=== PATIENT | female | born 1955 | race Caucasian/White ===

== ENCOUNTER → 2018-01-14 | Outpatient (CLI) | payer OTHER ==
--- NOTE | 2018-01-15 08:36 | MM ---
Reason for exam: screening (asymptomatic). Last mammogram was performed 1 year and 4 months ago. History: Patient is postmenopausal. Took estrogen for 6 months beginning at age 50. Physical Findings: A clinical breast exam by your physician is recommended on an annual basis and results should be correlated with mammographic findings. MG 3D Screening Mammo W/Cad Bilateral CC and MLO view(s) were taken. Prior study comparison: September 12, 2016, bilateral MG screening mammo w CAD. February 23, 2015, bilateral MG screening mammo w CAD. The breast tissue is heterogeneously dense. This may lower the sensitivity of mammography. There is no discrete abnormality. No significant changes when compared with prior studies. ASSESSMENT: Negative, BI-RAD 1 RECOMMENDATION: Routine screening mammogram of both breasts in 1 year.
== END | disposition home or self-care (01) ==
LOC: RADMAMWWP 09:35
PROVIDERS: ATTEND Obstetrics & Gynecology
DX: Z12.31 Encounter for screening mammogram for malignant neoplasm of breast (principal)
CPT/HCPCS: 77063; 77067

== ENCOUNTER 2018-11-18 06:54 | Day surgery (SDC) | payer MEDICARE, OTHER ==
[2018-11-14 11:20] VITALS: BMI 23.6
[~2018-11-18 06:54] MED LIST: LACTATED RINGERS 1,000 ML IV SCH; LIDOCAINE 1% 20 ML VIAL (10MG/ML) FOR IV START INTRADERMA PRN
[2018-11-18 07:16] VITALS: RESP 16; TEMP 97.7
[2018-11-18] MEDS ORDERED: LIDOCAINE 1% INJ 10MG/ML (20 ML MDV) ONE (08:45)
[2018-11-18] MEDS ORDERED: PROPOFOL 10 MG/ML 20 ML VIAL IV ONE (08:45)
--- NOTE | 2018-11-18 09:18 | P.PCN ---
Date of Procedure: 11/18/18 Procedure(s) Performed: Procedure: Total colonoscopy. Preoperative diagnosis: Screening for neoplasia. Postoperative diagnosis: Exam within normal limits. Preparation: HalfLytely prep. Sedation: Was provided by anesthesia. Brief clinical history: The patient a 63-year-old female who is scheduled for this evaluation for screening for neoplasia age being her risk factor. She had two prior exams, the last was around 10 years ago. The patient has no abdominal complaints, bleeding or anemia. No family history of colon cancer. Her brother had polyps. Procedure: With the patient on her left lateral decubitus position and after informed consent and adequate sedation, the perianal area was inspected and it did not show any fissures or fistulas. There were no masses felt on digital rectal examination. The Olympus CFH 190L video colonoscope was then inserted in the rectum in the usual fashion and advanced to the cecum. The mucosa appeared healthy. No polyps or tumors were seen or any obvious diverticular disease or other pathology. I retroflexed the endoscope in the rectum before the endoscope was withdrawn. The patient tolerated the procedure well. Plan: The patient was reassured. She will follow-up with you as planned and I recommended repeat exam in 10 years.
[2018-11-18 09:24] VITALS: BP 111/74; PULSE 86
== END 2018-11-18 09:43 | disposition home or self-care (01) ==
LOC: ORWHC2ENDO 06:54
DX: Z12.11 Encounter for screening for malignant neoplasm of colon (principal); J45.909 Unspecified asthma, uncomplicated; F39 Unspecified mood [affective] disorder; M81.0 Age-related osteoporosis without current pathological fracture; Z79.899 Other long term (current) drug therapy; Z88.5 Allergy status to narcotic agent; Z83.71 Family history of colonic polyps
CPT/HCPCS: J2001; J2704; G0121

== ENCOUNTER → 2021-01-27 | Outpatient (CLI) | payer MEDICARE ==
--- NOTE | 2021-01-30 11:05 | MM ---
Reason for exam: screening (asymptomatic). Last mammogram was performed 3 years ago. History: Patient is postmenopausal. Took estrogen for 6 months beginning at age 50. Physical Findings: A clinical breast exam by your physician is recommended on an annual basis and results should be correlated with mammographic findings. MG 3D Screening Mammo W/Cad Bilateral CC and MLO view(s) were taken. Prior study comparison: January 14, 2018, bilateral MG 3d screening mammo w/cad. September 12, 2016, bilateral MG screening mammo w CAD. The breast tissue is heterogeneously dense. This may lower the sensitivity of mammography. There are benign appearing vascular calcifications bilaterally. There is no discrete abnormality. ASSESSMENT: Negative, BI-RAD 1 RECOMMENDATION: Routine screening mammogram of both breasts in 1 year.
== END | disposition home or self-care (01) ==
LOC: RADMAMWWP 10:19
PROVIDERS: ATTEND Obstetrics & Gynecology
DX: Z12.31 Encounter for screening mammogram for malignant neoplasm of breast (principal); Z78.0 Asymptomatic menopausal state
CPT/HCPCS: 77063; 77067

== ENCOUNTER → 2022-07-04 | Outpatient (CLI) | payer MEDICARE ==
[2022-07-04 16:49] LABS: T4, Free (Free Thyroxine) 1.07 ng/dL (0.800-1.800)
== END | disposition home or self-care (01) ==
LOC: LABWHC1 09:17
PROVIDERS: ATTEND Psychiatry & Neurology Neurology
DX: R41.3 Other amnesia (principal)
CPT/HCPCS: 36415; 82607; 84439; 84443; 84480; 86780

== ENCOUNTER → 2022-10-10 | Outpatient (CLI) | payer MEDICARE ==
--- NOTE | 2022-10-11 18:52 | MM ---
Reason for Exam: Screening (asymptomatic). Last mammogram was performed 1 year(s) and 8 month(s) ago. Patient History: Menarche at age 12. First Full-Term at age 27. Postmenopausal. Estrogen for 6 months starting at age 50. Risk Values: Radha 5 year model risk: 1.7%. NCI Lifetime model risk: 5.4%. Prior Study Comparison: 09/12/2016 Bilateral Screening Mammogram, [facility]. 01/14/2018 Bilateral Screening Mammogram, [facility]. 01/27/2021 Bilateral Screening Mammogram, [facility]. Tissue Density: The breast tissue is heterogeneously dense. This may lower the sensitivity of mammography. Findings: Analyzed By CAD. Areas of asymmetric density remain unchanged. There is no suspicious group of microcalcifications or new suspicious mass in either breast. Overall Assessment: Benign, BI-RAD 2 Management: Screening Mammogram of both breasts in 1 year. 1. Patient should continue monthly self breast exams. 2. A clinical breast exam by your physician is recommended on an annual basis. 3. This exam should not preclude additional follow-up of suspicious palpable abnormalities. Electronically signed and approved by: Uzma Lake M.D. Radiologist
--- NOTE | 2022-10-12 10:33 | BD ---
EXAMINATION TYPE: Axial Bone Density DATE OF EXAM: 10/10/2022 COMPARISON: 04/10/2007 CLINICAL HISTORY: 67 years year old Female. ICD-10 CODE: M810 OSTEOPOROSIS Height: 5 FT 1 IN Weight: 122 FRAX RISK QUESTIONS: Alcohol (3 or more units per day): NO Family History (Parent hip fracture): NO Glucocorticoids (More than 3mos): NO (Ex: prednisone, prednisolone, methylprednisolone, dexamethasone, and hydrocortisone). History of Fracture in Adulthood: NO Secondary Osteoporosis: 1. Type 1 Diabetes: NO 2. Hyperthyroidism: NO 3. Menopause before 45: YES 4. Malnutrition: NO 5. Chronic liver disease: NO Rheumatoid Arthritis: NO Current Tobacco Use: NO RISK FACTORS HISTORY OF: Surgery to Spine/Hip(right/left)/Wrist (right/left): NO Family History of Osteoporosis: NO Active: YES Diet low in dairy products/other sources of calcium: NO Postmenopausal woman: YES Take estrogen and/or progesterone medications: NO Lost more than 2 inches in height since high school: YES Frequent falls: YES Poor Health: GOOD Hyperparathyroidism: NO Adrenal Insufficiency: NO MEDICATIONS: Osteoporosis Medications: YES Which medication: RALOXIFENE How Long: FIVE YEARS Additional Medications: TRAZODONE, CLONOPIN, RESTASIS, FLUOXITINE, RALOXIFENE ,ANTIDEPRESSANT, Additional History: EXAM MEASUREMENTS: Bone mineral densitometry was performed using the goAct System. Bone mineral density as measured about the Lumbar spine is: ----- L1-L4(G/cm2): 0.841 T Score Values are as follows: ----- L1: -1.6 ----- L2: -2.9 ----- L3: -4.0 ----- L4: -2.9 ----- L1-L4: -2.8 Bone mineral density has: DECREASED -24.5 % since study of: 2006 Bone mineral density about the R hip (g/cm2): 0.690 Bone mineral density about the L hip (g/cm2): 0.616 T Score values are as follows: -----R Neck: -2.5 -----L Neck: -3.0 -----R Total: -1.9 -----L Total: -2.1 Bone mineral density has: DECREASED -12.3 % since study of: 2006 FRAX%s: The graph provided illustrates a 18.2 % chance for a major osteoporotic fx and a 6.1 % chance for the hips probability for fx in 10 years time. IMPRESSION: Osteoporosis (T Score less than -2.5). There is increased fracture risk and therapy is usually indicated based on age. Re-Screen 1-2 years. NOTE: T-SCORE=SD OF THE YOUNG ADULT MEAN.
== END | disposition home or self-care (01) ==
LOC: RADMAMWWP 13:52
PROVIDERS: ATTEND Internal Medicine
DX: Z12.31 Encounter for screening mammogram for malignant neoplasm of breast (principal); M81.0 Age-related osteoporosis without current pathological fracture; Z78.0 Asymptomatic menopausal state; M85.89 Other specified disorders of bone density and structure, multiple sites
CPT/HCPCS: 77063; 77067; 77080

== ENCOUNTER → 2022-11-15 | Outpatient (CLI) | payer MEDICARE ==
--- NOTE | 2022-11-15 11:59 | US ---
EXAMINATION TYPE: US liver DATE OF EXAM: 11/15/2022 COMPARISON: NONE CLINICAL HISTORY: R74.01 ELEVATION LIVER TRANSAMINASE LEVELS. Abnormal labs. No pain. TECHNIQUE: Multiple sonographic images of the right upper quadrant are obtained. FINDINGS: EXAM MEASUREMENTS: Liver Length: 15.2 cm Gallbladder Wall: 0.1 cm CBD: 0.6 cm Right Kidney: 9.5 x 5.6 x 3.8 cm Pancreas: Echogenic in appearance. Liver: wnl Gallbladder: wnl Evidence for sonographic Hernandez's sign: neg CBD: wnl Right Kidney: No hydronephrosis or masses seen IMPRESSION: Unremarkable ultrasound of the liver, gallbladder, pancreas, and kidneys
== END | disposition home or self-care (01) ==
LOC: RADUSWWP 08:50
PROVIDERS: ATTEND Internal Medicine
DX: R74.01 Elevation of levels of liver transaminase levels (principal)
CPT/HCPCS: 76705

== ENCOUNTER 2023-11-25 06:32 | Emergency (ER) | payer MEDICARE ==
[2023-11-25] MEDS: ACETAMINOPHEN TAB 325 MG TAB PO STA (06:41)
[2023-11-25] MEDS: IBUPROFEN 600 MG TAB PO STA (06:41)
[2023-11-25] MEDS: LIDOCAINE 4% PATCH TOPICAL ONE (06:43)
--- NOTE | 2023-11-25 06:46 | ED ---
Back Pain HPI - General Chief Complaint: Back Pain/Injury Stated Complaint: Fall Time Seen by Provider: 11/25/23 06:35 Source: patient, family, EMS, RN notes reviewed Mode of arrival: EMS Limitations: no limitations - History of Present Illness Initial Comments: This is a 68-year-old female who presents to the emergency department for a fall. Patient has Alzheimer's as well as another neurological problem causing frequent falls. Her is her multimedia developer caregiver, and he tries to catch her when she falls. However 2 days ago he was at work, and she went to let the dogs out, but lost her balance and fell into their stone fireplace, landing on her right side. She has since been complaining of pain to the right lower back and right hip. She did not hit her head and she is not taking any blood thinners. She is still able to ambulate, and EMS noted her to be ambulating quite well. She is treating her symptoms with ibuprofen, which is not eff ective. She has a cane, but does not like to use it. MD Complaint: back pain, back injury, fall Onset/Timin -: days(s) - Related Data Home Medications Medication Instructions Recorded Confirmed Albuterol Sulfate [Proair Hfa] 1 - 2 puff INHALATION Q6HR PRN 11/14/18 11/18/18 FLUoxetine HCL 40 mg PO QAM 11/14/18 11/14/18 Raloxifene [Evista] 60 mg PO QAM 11/14/18 11/18/18 buPROPion HCL [Wellbutrin XL] 300 mg PO QAM 11/14/18 11/14/18 clonazePAM 0.5 mg PO BID 11/14/18 11/14/18 cycloSPORINE [Restasis] 1 applicator BOTH EYES BID PRN 11/14/18 11/14/18 traZODone HCL [Desyrel] 100 mg PO HS 11/14/18 11/14/18 Previous Rx's Medication Instructions Recorded Acetaminophen [Tylenol Extra 1,000 mg PO Q6H PRN #60 tablet 11/25/23 Strength] Ibuprofen [Motrin] 800 mg PO Q8H PRN #30 tab 11/25/23 Lidocaine 5% Patch [Lidoderm 5% 1 patch TOPICAL DAILY PRN #30 patch 11/25/23 Patch] methocarbamoL [Robaxin-750] 750 mg PO QID PRN #30 tab 11/25/23 Allergies Allergy/AdvReac Type Severity Reaction Status Date / Time codeine AdvReac Nausea & Verified 11/25/23 06:40 Vomiting Review of Systems ROS Statement: Those systems with pertinent positive or pertinent negative responses have been documented in the HPI. ROS Other: All systems not noted in ROS Statement are negative. Past Medical History Past Medical History: Asthma Additional Past Medical History / Comment(s): HX OSTEOPOROSIS History of Any Multi-Drug Resistant Organisms: None Reported Past Surgical History: Section, Orthopedic Surgery Additional Past Surgical History / Comment(s): MICHELINE KNEES MENISCUS REPAIR, SINUS SX Past Anesthesia/Blood Transfusion Reactions: No Reported Reaction Past Psychological History: Anxiety, Depression Smoking Status: Never smoker Past Alcohol Use History: Rare Past Drug Use History: None Reported - Past Family History Father Family Medical History: Cancer Additional Family Medical History / Comment(s): THROAT, SKIN General Exam Limitations: no limitations General appearance: alert, in no apparent distress Head exam: Present: atraumatic, normocephalic, normal inspection Respiratory exam: Present: normal lung sounds bilaterally. Absent: respiratory distress, wheezes, rales, rhonchi, stridor Cardiovascular Exam: Present: regular rate, normal rhythm, normal heart sounds. Absent: systolic murmur, diastolic murmur, rubs, gallop, clicks Extremities exam: Present: other (Tenderness over the right lateral hip. Full ROM. No deformities. No shortening or rotation of the lower extremity. 2+ DP and PT pulses.) Back exam: Present: other (Right lower back, no vertebral tenderness) Neurological exam: Present: alert, oriented X3, CN II-XII intact Psychiatric exam: Present: normal affect, normal mood Skin exam: Present: warm, dry, intact, normal color. Absent: rash Course Vital Signs 11/25/23 11/25/23 06:33 09:47 Temperature 97.7 F Pulse Rate 95 84 Respiratory 17 14 Rate Blood Pressure 146/96 137/74 O2 Sat by Pulse 98 97 Oximetry Medical Decision Making - Medical Decision Making This is a 68-year-old female who presents to the emergency department for back pain and hip pain after a fall. Was pt. sent in by a medical professional or institution? @ -No Did you speak to anyone other than the patient for history? @ -EMS provided the majority of the information. Did you review nursing and triage notes? @ -Yes, and I agree, it is accurate with regards to the patient's symptoms. Were old charts reviewed? @ -No Differential Diagnosis? @ -Differential Back Pain: Strain, zoster, cauda equina syndrome, epidural abscess, vertebral osteomyelitis, discitis, fracture, subluxation, disc herniation, DJD, spinal stenosis, dissection, AAA, pancreatitis, peptic ulcer disease, pyelonephritis, kidney stone, this is not meant to be an all-inclusive list. EKG interpreted by me (3pts min.)? @ -Not obtained X-rays interpreted by me (1pt min.)? @ -X-ray of the lumbar spine, sacrum/coccyx, and right hip obtained. My inte rpretation identifies no acute fractures and a suspected age indeterminate T12 compression deformity. CT interpreted by me (1pt min.)? @ -Not obtained U/S interpreted by me (1pt. min.)? @ -Not obtained What testing was considered but not performed? (CT, X-rays, U/S, labs)? Why? @ -None What meds were considered but not given? Why? @ -None Did you discuss the management of the patient with other professionals? @ -No Did you reconcile home meds? @ -No Was smoking cessation discussed for >3mins.? @ -No Was critical care preformed (if so, how long)? @ -No Were there social determinants of health that impacted care today? How? (Homelessness, low income, unemployed, alcoholism, drug addiction, transportation, low edu. Level, literacy, decrease access to med. care, [facility], rehab)? @ -No Was there de-escalation of care discussed even if they declined? (Discuss DNR or withdrawal of care, Hospice)? @ -No What co-morbidities impacted this encounter? (DM, HTN, Smoking, COPD, CAD, Cancer, CVA, Hep., AIDS, mental health diagnosis, sleep apnea, morbid obesity)? @ -Alzheimer's, balance disorder, osteoporosis Was patient admitted / discharged? @ -Discharged. X-ray of the lumbar spine, sacrum/coccyx, and right hip obtained. This demonstrates a T12 age indeterminate compression fracture. Patient has no point tenderness over this area, and due to the frequent falls the patient is experiencing, there are multiple instances when this may have occurred. No other injuries were noted on the imaging. Discussed with the patient and her having the patient use a walker for support. Patient is in agreement with this and her states that he is able to get her a walker today. She was initially treated with Ibuprofen, Tylenol, and a lidocaine patch, with some improvement in symptoms. Her inquired about adequate pain control at home as well as medication dosing, and advised that she had done well with Tramadol in the past. He also inquired about a muscle relaxant. I was in agreement with trying these and she was subsequently given a dose of Tramadol and Robaxin in the emergency department with improvement in symptoms. Her requested a prescription for Ibuprofen and Tylenol to help with dosing. Rx for Ibuprofen, Tylenol, Robaxin, and lidocaine patches provided with dosing instructions reviewed. Patient discharged home in stable condition and will follow up with her PCP. Undiagnosed new problem with uncertain prognosis? @ -None Drug Therapy requiring intensive monitoring for toxicity (Heparin, Nitro, Insulin, Cardizem)? @ -None Were any procedures done? @ -None Diagnosis/symptom? @ -Fall, back pain Acute, or Chronic, or Acute on Chronic? @ -Acute Uncomplicated (without systemic symptoms) or Complicated (systemic symptoms)? @ -Uncomplicated Side effects of treatment? @ -None Exacerbation, Progression, or Severe Exacerbation] @ -Not applicable Poses a threat to life or bodily function? @ -No Return precautions reviewed in depth, the patient is instructed to return to the emergency department with any new, worsening, or concerning symptoms. Patient verbalized understanding. This case was discussed in detail with the attending ED physician, Dr. Damon Presentation, findings, and treatment plan discussed in detail as well. - Radiology Data Radiology results: report reviewed, image reviewed Disposition Clinical Impression: Fall, Back pain Disposition: HOME SELF-CARE Condition: Stable Instructions (If sedation given, give patient instructions): Fall Prevention for Older Adults (ED), Back Pain (ED) Additional Instructions: Return to the emergency department with any new, worsening, or concerning symptoms. She can have Ibuprofen 800mg every 8 hours (3 times daily) and Tylenol 1g (1000mg or 2 extra strength) every 6 hours (4 times daily). She can take the Robaxin 3-4 times daily, be aware that this may make her drowsy. The lidocaine patches can be applied daily. Follow up with her primary care provider in 1-2 days. Prescriptions: Lidocaine 5% Patch [Lidoderm 5% Patch] 1 patch TOPICAL DAILY PRN #30 patch PRN Reason: Pain Ibuprofen [Motrin] 800 mg PO Q8H PRN #30 tab PRN Reason: Pain methocarbamoL [Robaxin-750] 750 mg PO QID PRN #30 tab PRN Reason: Pain Acetaminophen [Tylenol Extra Strength] 1,000 mg PO Q6H PRN #60 tablet PRN Reason: Pain Is patient prescribed a controlled substance at d/c from ED?: No Referrals: Issac Pederson DO [Primary Care Provider] - 1-2 days Time of Disposition: 09:40
[2023-11-25 06:52] VITALS: TEMP 97.7
--- NOTE | 2023-11-25 07:51 | XR ---
EXAMINATION TYPE: XR Hip Complete RT DATE OF EXAM: 11/25/2023 7:37 AM CLINICAL INDICATION:Female, 68 years old with history of Pain after fall; [facility] COMPARISON: None. TECHNIQUE: XR Hip Complete RT; hip was examined in the frontal and lateral projections and a AP pelvi s. FINDINGS: No evidence for acute process, joint dislocation or significant soft tissue swelling. Osteo phyte formation of the superior acetabulum of the hip. IMPRESSION: 1. No evidence for acute process. 2. Mild hip osteoarthrosis.
--- NOTE | 2023-11-25 07:55 | XR ---
EXAMINATION TYPE: XR sacrum coccyx, XR lumbar spine 2 or 3V DATE OF EXAM: 11/25/2023 7:37 AM CLINICAL INDICATION:Female, 68 years old with history of Pain after fall; e COMPARISON: None TECHNIQUE: The sacrum and coccyx was examined in frontal and lateral projections. Additional frontal and lateral views of the lumbar spine were obtained. FINDINGS: There is no soft tissue abnormality. No abnormal calcifications are present. Multilevel de generative changes of the lower spine with osteophyte formation and disc space narrowing with facet j oint arthropathy.. Mild scoliosis changes apex L2 on the left. Ration deformity of T12 which is age i ndeterminate. There is at least 50% height loss anteriorly. Sacrum and coccyx appear intact. IMPRESSION: 1. Age-indeterminate T12 compression deformity, consider MRI for evaluation for bony edema in the se tting of a acute/subacute fracture. 2. Coccyx and sacrum appear intact.
[2023-11-25] MEDS: traMADol 50 MG STARTER PACK 3 TAB BTL PO STA (08:57)
[2023-11-25] MEDS: traMADol 50 MG TAB PO STA (08:58)
[2023-11-25] MEDS: methocarbamoL 750 MG TAB PO STA (09:04)
[2023-11-25] MEDS: methocarbamoL 500 MG TAB PO STA (09:23)
[2023-11-25 10:16] VITALS: BP 137/74; PULSE 84; RESP 14
== END 2023-11-25 09:48 | disposition home or self-care (01) ==
LOC: EC 06:32
DX: M54.50 Low back pain, unspecified (principal); J45.909 Unspecified asthma, uncomplicated; F41.9 Anxiety disorder, unspecified; F32.A Depression, unspecified; Z79.899 Other long term (current) drug therapy; W19.XXXA Unspecified fall, initial encounter; Z88.5 Allergy status to narcotic agent
CPT/HCPCS: 72100; 72220; 73502; 99284

== ENCOUNTER 2023-11-28 14:30 | Observation (INO) | payer MEDICARE ==
--- NOTE | 2023-11-28 14:52 | ED ---
Weakness HPI - General Chief complaint: Syncope Stated complaint: Syncope Time Seen by Provider: 11/28/23 14:45 Source: EMS, RN notes reviewed, old records reviewed Mode of arrival: EMS Limitations: no limitations - History of Present Illness Initial comments: This is a 68-year-old female to the ER for evaluation today. Patient presents today for evaluation of a syncopal event. Possibly from significant low back pain patient was in the ER a few days ago for severe back pain patient was amatory which began to have severe back pain and passed out in her 's arms as he was trying to help her to the bathroom. Back pain has been debilitating patient is without other complaint MD Complaint: generalized weakness, focal weakness, lack of energy, difficulty walking -: days(s) Location: generalized Severity: severe Severity scale (1-10): 9 Quality: aching, sharp Consistency: constant Improves with: none Worsens with: none Context: recent illness, history of similar Associated Symptoms: denies other symptoms - Related Data Home Medications Medication Instructions Recorded Confirmed Albuterol Sulfate [Proair Hfa] 1 - 2 puff INHALATION Q6HR PRN 11/14/18 11/28/23 FLUoxetine HCL 80 mg PO DAILY 11/14/18 11/28/23 Raloxifene [Evista] 60 mg PO DIRECTED 11/14/18 11/28/23 buPROPion HCL [Wellbutrin XL] 300 mg PO DAILY 11/14/18 11/28/23 clonazePAM 0.5 mg PO BID 11/14/18 11/28/23 traZODone HCL [Desyrel] 100 mg PO HS 11/14/18 11/28/23 "Goodsense" Allergy Tablet (24hr 1 dose PO DAILY 11/28/23 11/28/23 Tab) Alendronate Sodium 70 mg PO TU 11/28/23 11/28/23 Calcium/D3/Zinc/Copper/Darin 1 tab PO DAILY 11/28/23 11/28/23 [Citracal-D3 Maximum Plus Caplt] Multivit-Min/Iron/Folic/Lutein 1 tab PO DAILY 11/28/23 11/28/23 [Centrum Silver Women Tablet] polyethylene glycoL 3350 [Miralax] 17 gm PO DAILY 11/28/23 11/28/23 Previous Rx's Medication Instructions Recorded Acetaminophen [Tylenol Extra 1,000 mg PO Q6H PRN #60 tablet 11/25/23 Strength] Ibuprofen [Motrin] 800 mg PO Q8H PRN #30 tab 11/25/23 Lidocaine 5% Patch [Lidoderm 5% 1 patch TOPICAL DAILY PRN #30 patch 11/25/23 Patch] Allergies Allergy/AdvReac Type Severity Reaction Status Date / Time codeine AdvReac Nausea & Verified 11/28/23 19:21 Vomiting Review of Systems ROS Statement: Those systems with pertinent positive or pertinent negative responses have been documented in the HPI. ROS Other: All systems not noted in ROS Statement are negative. Past Medical History Past Medical History: Asthma Additional Past Medical History / Comment(s): HX OSTEOPOROSIS History of Any Multi-Drug Resistant Organisms: None Reported Past Surgical History: Section, Orthopedic Surgery Additional Past Surgical History / Comment(s): MICHELINE KNEES MENISCUS REPAIR, SINUS SX Past Anesthesia/Blood Transfusion Reactions: No Reported Reaction Past Psychological History: Anxiety, Depression Smoking Status: Never smoker Past Alcohol Use History: Rare Past Drug Use History: None Reported - Past Family History Father Family Medical History: Cancer Additional Family Medical History / Comment(s): THROAT, SKIN General Exam Limitations: no limitations General appearance: alert, in no apparent distress Head exam: Present: atraumatic, normocephalic, normal inspection Eye exam: Present: normal appearance, PERRL, EOMI. Absent: scleral icterus, conjunctival injection, periorbital swelling ENT exam: Present: normal exam, mucous membranes moist Neck exam: Present: normal inspection. Absent: tenderness, meningismus, lymphadenopathy Respiratory exam: Present: normal lung sounds bilaterally. Absent: respiratory distress, wheezes, rales, rhonchi, stridor Cardiovascular Exam: Present: regular rate, normal rhythm, normal heart sounds. Absent: systolic murmur, diastolic murmur, rubs, gallop, clicks GI/Abdominal exam: Present: soft, normal bowel sounds. Absent: distended, tenderness, guarding, rebound, rigid Extremities exam: Present: normal inspection, full ROM, normal capillary refill. Absent: tenderness, pedal edema, joint swelling, calf tenderness Back exam: Present: normal inspection Neurological exam: Present: alert, oriented X3, CN II-XII intact Psychiatric exam: Present: normal affect, normal mood Skin exam: Present: warm, dry, intact, normal color. Absent: rash Course Vital Signs 11/28/23 14:36 Temperature 97.6 F Pulse Rate 90 Respiratory 18 Rate Blood Pressure 120/74 O2 Sat by Pulse 98 Oximetry - Reevaluation(s) Reevaluation #1: 11/28/23 20:05 Medical record is reviewed Reevaluation #2: 11/28/23 20:05 Patient symptoms unchanged but no recurrent syncope Reevaluation #3: 11/28/23 20:05 Patient informed of results and questions answered Reevaluation #4: Was pt. sent in by a medical professional or institution ([facility], [employer], urgent care, hospital, or intermediate...) When possible be specific @ -no Did you speak to anyone other than the patient for history (EMS, parent, family, police, friend...)? What history was obtained from this source @ -no Did you review nursing and triage notes (agree or disagree)? Why? @ -agree Are old charts reviewed (outside hosp., previous admission, EMS record, old EKG, old radiological studies, urgent care reports/EKG's, intermediate records)? Report findings @ -yes Differential Diagnosis (chest pain, altered mental status, abdominal pain women, abdominal pain men, vaginal bleeding, weakness, fever, dyspnea, syncope, headache, dizziness, GI bleed, back pain, seizure, CVA, palpatations, mental health, musculoskeletal)? @ -prior EKG interpreted by me (3pts min.). @ -yes X-rays interpreted by me (1pt min.). @ -yes negative for acute disease CT interpreted by me (1pt min.). @ -no U/S interpreted by me (1pt. min.). @ -no What testing was considered but not performed or refused? (CT, X-rays, U/S, labs)? Why? @ -none What meds were considered but not given or refused? Why? @ -none Did you discuss the management of the patient with other professionals (professionals i.e. [facility], [employer], lab, RT, psych nurse, medical social consultant, [employer], teacher, [place] police officer, case advocate)? Give summary @ -no Was smoking cessation discussed for >3mins.? @ -no Was critical care preformed (if so, how long)? @ -no Were there social determinants of health that impacted care today? How? (Homelessness, low income, unemployed, alcoholism, drug addiction, transportation, low edu. Level, literacy, decrease access to med. care, nursing home, re hab)? @ -none Was there de-escalation of care discussed even if they declined (Discuss DNR or withdrawal of care, Hospice)? DNR status @ -no What co-morbidities impacted this encounter? (DM, HTN, Smoking, COPD, CAD, Cancer, CVA, ARF, Chemo, Hep., AIDS, mental health diagnosis, sleep apnea, morbid obesity)? @ -none Was patient admitted / discharged? Hospital course, mention meds given and route, prescriptions, significant lab abnormalities, going to OR and other pertinent info. @ - Undiagnosed new problem with uncertain prognosis? @ -no Drug Therapy requiring intensive monitoring for toxicity (Heparin, Nitro, Insulin, Cardizem)? @ -no Were any procedures done? @ -no Diagnosis/symptom? @ - Acute, or Chronic, or Acute on Chronic? @ -Acute Uncomplicated (without systemic symptoms) or Complicated (systemic symptoms)? @ -Complicated Side effects of treatment? @ -no Exacerbation, Progression, or Severe Exacerbation? @ -exacerbation Poses a threat to life or bodily function? How? (Chest pain, [place], [place], pneumonia, PE, COPD, DKA, ARF, appy, cholecystitis, CVA, Diverticulitis, Homicidal, Suicidal, threat to staff... and all critical care pts) @ -yes Reevaluation #5: 11/28/23 20:05 Differential Syncope: Valvular disease, hypertrophic cardiomyopathy, pulmonary embolism, tamponade, tachycardia, bradycardia, [place], hypovolemia, hemorrhage, dissection, anemia, intracranial hemorrhage, seizure, hypoglycemia, carbon monoxide poisoning, this is not meant to be an all-inclusive list. Differential Back Pain: Strain, zoster, cauda equina syndrome, epidural abscess, vertebral osteomyelitis, discitis, fracture, subluxation, disc herniation, DJD, spinal stenosis, dissection, AAA, pancreatitis, peptic ulcer disease, pyelonephritis, kidney stone, this is not meant to be an all-inclusive list. - Consultations Consultation #1: Spoke with sound who agrees to admit the patient EKG Findings - EKG Comments: EKG Findings:: EKG is sinus 91 IL 112 QRS 95 QTc 425 Medical Decision Making - Medical Decision Making 68 female will be admitted for syncopal event and VQ scan secondary to bad kidney labs. Patient does have imaging of her back and back pain is controlled and patient admitted for syncopal event - Lab Data Result diagrams: 11/28/23 14:52 11/28/23 14:52 Lab Results 11/28/23 11/28/23 11/28/23 Range/Units 14:52 14:52 14:52 WBC 10.2 (3.8-10.6) k/uL RBC 5.13 (3.80-5.40) m/uL Hgb 15.8 (11.4-16.0) gm/dL Hct 47.3 H (34.0-46.0) % MCV 92.1 (80.0-100.0) fL MCH 30.8 (25.0-35.0) pg MCHC 33.4 (31.0-37.0) g/dL RDW 12.0 (11.5-15.5) % Plt Count 196 (150-450) k/uL MPV 8.4 Neutrophils % 68 % Lymphocytes % 22 % Monocytes % 6 % Eosinophils % 2 % Basophils % 0 % Neutrophils # 6.9 (1.3-7.7) k/uL Lymphocytes # 2.3 (1.0-4.8) k/uL Monocytes # 0.6 (0-1.0) k/uL Eosinophils # 0.2 (0-0.7) k/uL Basophils # 0.0 (0-0.2) k/uL PT 10.3 (10.0-12.5) sec INR 0.9 (<1.2) APTT 21.2 L (22.0-30.0) sec D-Dimer 2.05 H (<0.60) mg/L FEU Sodium 137 (137-145) mmol/L Potassium 3.2 L (3.5-5.1) mmol/L Chloride 103 (98-107) mmol/L Carbon Dioxide 18 L (22-30) mmol/L Anion Gap 16 mmol/L BUN 45 H (7-17) mg/dL Creatinine 1.71 H (0.52-1.04) mg/dL Est GFR (CKD-EPI)AfAm 35 (>60 ml/min/1.73 sqM) Est GFR (CKD-EPI)NonAf 30 (>60 ml/min/1.73 sqM) Glucose 120 H (74-99) mg/dL Plasma Lactic Acid Ino (0.7-2.0) mmol/L Calcium 9.7 (8.4-10.2) mg/dL Phosphorus 5.6 H (2.5-4.5) mg/dL Magnesium 2.3 (1.6-2.3) mg/dL Total Bilirubin 0.4 (0.2-1.3) mg/dL AST 35 (14-36) U/L ALT 32 (4-34) U/L Alkaline Phosphatase 95 (38-126) U/L Troponin I (0.000-0.034) ng/mL NT-Pro-B Natriuret Pep 191 pg/mL Total Protein 6.9 (6.3-8.2) g/dL Albumin 4.0 (3.5-5.0) g/dL 11/28/23 11/28/23 Range/Units 14:52 14:52 WBC (3.8-10.6) k/uL RBC (3.80-5.40) m/uL Hgb (11.4-16.0) gm/dL Hct (34.0-46.0) % MCV (80.0-100.0) fL MCH (25.0-35.0) pg MCHC (31.0-37.0) g/dL RDW (11.5-15.5) % Plt Count (150-450) k/uL MPV Neutrophils % % Lymphocytes % % Monocytes % % Eosinophils % % Basophils % % Neutrophils # (1.3-7.7) k/uL Lymphocytes # (1.0-4.8) k/uL Monocytes # (0-1.0) k/uL Eosinophils # (0-0.7) k/uL Basophils # (0-0.2) k/uL PT (10.0-12.5) sec INR (<1.2) APTT (22.0-30.0) sec D-Dimer (<0.60) mg/L FEU Sodium (137-145) mmol/L Potassium (3.5-5.1) mmol/L Chloride (98-107) mmol/L Carbon Dioxide (22-30) mmol/L Anion Gap mmol/L BUN (7-17) mg/dL Creatinine (0.52-1.04) mg/dL Est GFR (CKD-EPI)AfAm (>60 ml/min/1.73 sqM) Est GFR (CKD-EPI)NonAf (>60 ml/min/1.73 sqM) Glucose (74-99) mg/dL Plasma Lactic Acid Ino 0.9 (0.7-2.0) mmol/L Calcium (8.4-10.2) mg/dL Phosphorus (2.5-4.5) mg/dL Magnesium (1.6-2.3) mg/dL Total Bilirubin (0.2-1.3) mg/dL AST (14-36) U/L ALT (4-34) U/L Alkaline Phosphatase (38-126) U/L Troponin I <0.012 (0.000-0.034) ng/mL NT-Pro-B Natriuret Pep pg/mL Total Protein (6.3-8.2) g/dL Albumin (3.5-5.0) g/dL - Radiology Data Radiology results: report reviewed (Chest x-ray CT abdomen and LS-spine are negative for acute disease), image reviewed Disposition Clinical Impression: Fall, Back pain, Syncope due to orthostatic hypotension, Weakness, Vasovagal syncope, Dehydration Disposition: ADMITTED IP TO THIS HOSP Condition: Fair Is patient prescribed a controlled substance at d/c from ED?: No Time of Disposition: 17:45
[2023-11-28] MEDS: SODIUM CHLORIDE 0.9% 1,000 ML IV STA (14:59)
[2023-11-28 15:01] LABS: Basophils % (A) 0 %; Eosinophils # (A) 0.2 k/uL (0-0.7); Eosinophils % (A) 2 %; HCT 47.3 % (34.0-46.0); HGB 15.8 gm/dL (11.4-16.0); Lymphocytes # (A) 2.3 k/uL (1.0-4.8); Lymphocytes % (A) 22 %; MCH 30.8 pg (25.0-35.0); MCHC 33.4 g/dL (31.0-37.0); MCV 92.1 fL (80.0-100.0); Mean Platelet Volume 8.4; Monocytes # (A) 0.6 k/uL (0-1.0); Monocytes % (A) 6 %; Neutrophils # (A) 6.9 k/uL (1.3-7.7); Neutrophils % (A) 68 %; Platelet Count 196 k/uL (150-450); RBC 5.13 m/uL (3.80-5.40); WBC 10.2 k/uL (3.8-10.6)
[2023-11-28 15:16] LABS: ALT 32 U/L (4-34); AST 35 U/L (14-36); African American GFR (CKD) 35 (>60 ml/min/1.73 sqM); Alkaline Phosphatase 95 U/L (38-126); Anion Gap 16 mmol/L; Blood Urea Nitrogen 45 mg/dL (7-17); Calcium 9.7 mg/dL (8.4-10.2); Carbon Dioxide 18 mmol/L (22-30); Chloride 103 mmol/L (98-107); Glucose 120 mg/dL (74-99); Magnesium 2.3 mg/dL (1.6-2.3); Non-African American GFR(CKD) 30 (>60 ml/min/1.73 sqM); Phosphorus 5.6 mg/dL (2.5-4.5); Potassium 3.2 mmol/L (3.5-5.1); Sodium 137 mmol/L (137-145); Total Bilirubin 0.4 mg/dL (0.2-1.3); Total Protein 6.9 g/dL (6.3-8.2)
[2023-11-28 15:22] LABS: INR 0.9 (<1.2); Partial Thromboplastin Time 21.2 sec (22.0-30.0); Prothrombin Time 10.3 sec (10.0-12.5)
[2023-11-28 15:23] LABS: NT-Pro-B-Type Natriuretic Pept 191 pg/mL
[2023-11-28] MEDS ORDERED: HEPARIN SODIUM 1,000 UN/ML (10ML VL) IV PRN (17:41)
[2023-11-28] MEDS ORDERED: NALOXONE 0.4 MG/ML 1 ML VIAL IV PRN (17:41)
[2023-11-28] MEDS ORDERED: ONDANSETRON 4 MG/2 ML VIAL IVP PRN (17:41)
[2023-11-28 18:25] LABS: Appearance,Urine Clear (Clear); Bilirubin,Urine Negative (Negative); Blood,Urine Negative (Negative); Color,Urine Colorless; Glucose,Urine (UA) Trace (Negative); Ketones,Urine 1+ (Negative); Leukocyte Esterase,Urine Negative (Negative); Nitrite,Urine Negative (Negative); PH, Urine 5.5 (5.0-8.0); Protein,Urine Trace (Negative); Specific Gravity,Urine 1.016 (1.001-1.035); Urobilinogen,Urine <2.0 mg/dL (<2.0)
[2023-11-28] MEDS: HEPARIN SODIUM 1,000 UN/ML (10ML VL) IV ONE (18:45)
[2023-11-28] MEDS: HEPARIN SOD,PORK IN 0.45% NACL 25,000 UNIT in 0.45% NACL 1 250ML.BAG IV SCH (18:50)
--- NOTE | 2023-11-28 19:33 | XR ---
EXAMINATION: XR chest 2V: 11/28/2023 6:34 PM CLINICAL INDICATION: sob TECHNIQUE: Departmental protocol COMPARISON: None FINDINGS: The lungs are clear. The pleural spaces are negative. The cardiac silhouette is not enlarged. The remainder of the mediastinal silhouette is unremarkable. The skeletal structures and soft tissues are negative for acute findings. IMPRESSION: No acute radiographic process.
--- NOTE | 2023-11-28 20:55 | CT ---
EXAMINATION TYPE: CT abdomen pelvis wo con DATE OF EXAM: 11/28/2023 HISTORY: back pain. Inpatient. CT DLP: 295 mGycm. Automated Exposure Control for Dose Reduction was Utilized. TECHNIQUE: CT scan of the abdomen and pelvis is performed without oral or IV contrast. COMPARISON: None FINDINGS: LUNG BASES: No acute findings. Coronary calcifications noted. LIVER/GB: No significant abnormality is appreciated. PANCREAS: No significant abnormality is seen. SPLEEN: No significant abnormality is seen. ADRENALS: No significant abnormality is seen. KIDNEYS: No hydronephrosis or hydroureter. There are nonobstructing right renal calcifications measur ing 3 mm and 6 mm BOWEL: No bowel dilation or inflammation. Normal colonic stool volume. PERITONEAL CAVITY: No pneumoperitoneum or fluid. PELVIC VISCERA: There is moderate urinary bladder distention. LYMPH NODES: No greater than 1cm abdominal or pelvic lymph nodes are appreciated. OSSEOUS STRUCTURES: No significant abnormality is seen. Limitation of the study: Without IV contrast there is limited sensitivity for focal visceral lesions, intraluminal filling def ects, and vascular pathology. IMPRESSION: No acute process, CT Abdomen Pelvis without contrast. Coronary calcifications noted.
--- NOTE | 2023-11-28 21:02 | CT ---
EXAMINATION TYPE: CT lumbar spine wo con DATE OF EXAM: 11/28/2023 6:00 PM HISTORY: back pain. Inpatient. Technique: Departmental protocol. Automated exposure control for dose reduction was used. Unenhanced CT of the lumbar spine was performed. Bone and soft tissue window settings are submitted as well as coronal and sagittal reconstructions. CT DLP: 295 mGycm COMPARISON: None FINDINGS: T12 compression fracture is noted, with loss of nearly half of the original vertical height. There is no lumbar vertebral fracture or malalignment. There are multilevel advanced lumbar spondylos is changes, appearing most advanced at the L4-5 and L5-S1 levels. The paravertebral soft tissues are negative for significant findings. IMPRESSION: T12 compression fracture; MRI characterization can determine the chronicity of this finding.
[2023-11-29] MEDS: traZODone HCL 100 MG TAB PO SCH (02:10)
[2023-11-29] MEDS: POTASSIUM CHLORIDE ER 20 MEQ TAB.ER PO STA (02:14)
--- NOTE | 2023-11-29 02:20 | P.HPIM ---
History of Present Illness H&P Date: 11/28/23 Chief Complaint: Near syncope 68-year-old female with Alzheimer's dementia Patient coming in for evaluation due to refractory right-sided back pain this started after experiencing an accidental fall where she was interacting with her dog lost her balance fell and hit her back with a solid brick frame around the fireplace that was 5 days ago there was no loss of consciousness no head injury patient not on blood thinners she came into the hospital for evaluation at this time in the ED she was discharged on pain medications no acute fractures was were identified except for possible T12 fracture age indeterminant Today while her was helping her in the bathroom she kind of turned pale and almost passed out. She fell into her hands but she did not pass out she denies any associated chest pain trouble breathing palpitations dizziness or lightheadedness. No associated nausea vomiting or diaphoresis. Due to the severe debilitating pain she was having difficulty ambulating she describes the pain as severe sharp in her right flank not associated with any other new focal neurodeficits Patient does indicate poor p.o. intake and decreased level of activity since the accident 5 days ago No reported fevers chills or GI bleeding no new focal neurodeficits patient ambulates using a walker review of systems Pertinent positives as noted in HPI. All other systems were reviewed and are negative on exam Constitutional: No acute distress, pleasant Eyes: Anicteric sclerae, moist conjunctiva, Pupils equal round reactive to light ENMT: NC/AT Oropharynx clear, no erythema, or exudates Neck: Supple, no masses, or JVD No carotid bruits No thyromegaly Lungs: Clear to auscultation Clear to percussion Normal respiratory effort, no accessory muscle use Cardiovascular: Heart regular in rate and rhythm, No murmurs, gallops, or rubs No peripheral edema Abdominal: Soft Nontender, no guarding, rebound or rigidity Abdomen moving with respiration Normoactive bowel sounds No hepatomegaly, No splenomegaly No palpable mass No abdominal wall hernia noted Examination of the back revealed no skin changes no point tenderness over the spine no open wounds Extremities: No digital cyanosis No clubbing Pedal pulses intact and symmetrical Radial pulses intact and symmetrical No calf tenderness Psychiatric: Alert and oriented to person, place Neuro Muscles Strength 4/5 in all 4 extremities Sensation to light touch grossly present throughout Cranial nerves II-XII grossly intact Past Medical History Past Medical History: Asthma Additional Past Medical History / Comment(s): HX OSTEOPOROSIS History of Any Multi-Drug Resistant Organisms: None Reported Past Surgical History: Section, Orthopedic Surgery Additional Past Surgical History / Comment(s): MICHELINE KNEES MENISCUS REPAIR, SINUS SX Past Anesthesia/Blood Transfusion Reactions: No Reported Reaction Past Psychological History: Anxiety, Depression Smoking Status: Never smoker Past Alcohol Use History: Rare Past Drug Use History: None Reported - Past Family History Father Family Medical History: Cancer Additional Family Medical History / Comment(s): THROAT, SKIN Medications and Allergies Home Medications Medication Instructions Recorded Confirmed Type Albuterol Sulfate [Proair Hfa] 1 - 2 puff INHALATION Q6HR PRN 11/14/18 11/28/23 History FLUoxetine HCL 80 mg PO DAILY 11/14/18 11/28/23 History Raloxifene [Evista] 60 mg PO DIRECTED 11/14/18 11/28/23 History buPROPion HCL [Wellbutrin XL] 300 mg PO DAILY 11/14/18 11/28/23 History clonazePAM 0.5 mg PO BID 11/14/18 11/28/23 History traZODone HCL [Desyrel] 100 mg PO HS 11/14/18 11/28/23 History Acetaminophen [Tylenol Extra 1,000 mg PO Q6H PRN #60 tablet 11/25/23 11/28/23 Rx Strength] Ibuprofen [Motrin] 800 mg PO Q8H PRN #30 tab 11/25/23 11/28/23 Rx Lidocaine 5% Patch [Lidoderm 5% 1 patch TOPICAL DAILY PRN #30 patch 11/25/23 11/28/23 Rx Patch] "Goodsense" Allergy Tablet (24hr 1 dose PO DAILY 11/28/23 11/28/23 History Tab) Alendronate Sodium 70 mg PO TU 11/28/23 11/28/23 History Calcium/D3/Zinc/Copper/Darin 1 tab PO DAILY 11/28/23 11/28/23 History [Citracal-D3 Maximum Plus Caplt] Multivit-Min/Iron/Folic/Lutein 1 tab PO DAILY 11/28/23 11/28/23 History [Centrum Silver Women Tablet] polyethylene glycoL 3350 [Miralax] 17 gm PO DAILY 11/28/23 11/28/23 History Allergies Allergy/AdvReac Type Severity Reaction Status Date / Time codeine AdvReac Nausea & Verified 11/28/23 19:21 Vomiting Physical Exam Vitals: Vital Signs Temp Pulse Resp BP Pulse Ox 11/28/23 14:36 97.6 F 90 18 120/74 98 Intake and Output 11/28/23 11/28/23 11/28/23 06:59 14:59 22:59 Other: Weight 54.431 kg Results CBC & Chem 7: 11/28/23 14:52 11/28/23 14:52 Labs: Abnormal Lab Results - Last 24 Hours (Table) 11/28/23 11/28/23 11/28/23 Range/Units 14:52 14:52 14:52 Hct 47.3 H (34.0-46.0) % APTT 21.2 L (22.0-30.0) sec D-Dimer 2.05 H (<0.60) mg/L FEU Potassium 3.2 L (3.5-5.1) mmol/L Carbon Dioxide 18 L (22-30) mmol/L BUN 45 H (7-17) mg/dL Creatinine 1.71 H (0.52-1.04) mg/dL Glucose 120 H (74-99) mg/dL Phosphorus 5.6 H (2.5-4.5) mg/dL Urine Protein (Negative) Urine Glucose (UA) (Negative) Urine Ketones (Negative) 11/28/23 Range/Units 18:20 Hct (34.0-46.0) % APTT (22.0-30.0) sec D-Dimer (<0.60) mg/L FEU Potassium (3.5-5.1) mmol/L Carbon Dioxide (22-30) mmol/L BUN (7-17) mg/dL Creatinine (0.52-1.04) mg/dL Glucose (74-99) mg/dL Phosphorus (2.5-4.5) mg/dL Urine Protein Trace H (Negative) Urine Glucose (UA) Trace H (Negative) Urine Ketones 1+ H (Negative) Assessment and Plan Assessment: 68-year-old female with Alzheimer's dementia sustained an accidental fall and hit her back about 5 days ago since then she has been having debilitating right back pain which resulted in limitations in activities of daily living today while being helped by her in the bathroom she almost passed out I discussed the case with ED doctor accepted the admission for dehydration with acute kidney injury, refractory back pain with indeterminate age T12 compression fracture with anticipated length of stay less than 2 midnights Near syncope suspected secondary to dehydration Acute kidney injury secondary to prerenal ATN Fall precautions IV fluid hydration with normal saline status post 1 L bolus continue at 75 cc/h Follow-up renal function Monitor urine output Renal function showing BUN 45 creatinine 1.7 Sodium 137 Troponin negative Urine analysis does not indicate urinary tract infection Hemoglobin 15.8 White count 10.2 Chest x-ray no acute cardiopulmonary process Lumbar spinal CT showed indeterminate age T12 compression fracture CT of the abdomen pelvis no acute pathology Hypokalemia Potassium 3.2 Replace p.o. Follow-up BMP Incidental finding of positive D-dimer this could be related to the fall injury No hypoxemia Check n VQ scan of the lungs Low probability for PE Patient on heparin drip started in the ED for possible underlying blood clot Check venous Doppler ultrasound bilateral legs On exam no leg edema no swelling no calf tenderness Recent fall with back injury indeterminate age T12 compression fracture Ortho consult for evaluation Pain control with Tylenol 1000 mg every 6 hours as needed PT evaluation Full code DVT prophylaxis currently on heparin drip due to elevated D-dimer until venous thromboembolism is ruled out
[2023-11-29] MEDS: PANTOPRAZOLE 40 MG TABLET PO SCH (05:55)
[2023-11-29] MEDS: SODIUM CHLORIDE 0.9% 1,000 ML IV SCH (05:55)
--- NOTE | 2023-11-29 07:30 | P.CRDCN ---
History of Present Illness Consult date: 11/29/23 History of present illness: History of Present Illness: The patient is a 68-year-old female with no prior cardiac history who had a back injury last Saturday after falling. She was evaluated in the emergency room at that time and was given muscle relaxant as well as tramadol and ibuprofen. Since that time her back discomfort did not improve. Yesterday while turning she felt unsteady and her got her down to the ground. She did not have any syncope. She did not have any palpitations, dyspnea or chest discomfort. She is not very active physically because of imbalance even prior to her injury. She has a history of dementia. She has no history of cardiac disease. Her renal functions are abnormal on presentation, they were normal recently and could be worsened by the lack of oral intake and the nonsteroidal. She has no history of PND, orthopnea or peripheral edema. She has been in sinus mechanism since her admission. She has no coronary risk factors, she has no history of hypertension, hyperlipidemia, diabetes or smoking. Medications: Bupropion, Evista, trazodone, ibuprofen, fluoxetine, clonazepam, albuterol Review of Systems: Respiratory: No history of asthma, bronchitis or recent cough. GI: No nausea or vomiting . No history of peptic ulcer disease. No recent GI bleed. : No hematuria or dysuria. Nervous System: No stroke or seizure. She has a history of dementia Physical Examination: 68-year-old female, alert oriented, no acute distress,Blood pressure 150/89, Heart rate 80 Head: Normocephalic. Eyes: Sclerae nonicteric. Neck: Good carotid upstroke, no bruit, no jugular venous distention. Lungs: Clear to auscultation. Heart: Regular rate and rhythm, S1-S2, no S3, no rub. No murmur. Abdomen: Soft nontender, positive bowel sounds no organomegaly. Extremities: No edema, intact distal pulses. Labs: Hemoglobin 15.8, potassium 3.2, BUN 45, creatinine 1.7, D-dimer 2.05. Troponin less than 0.012. NT proBNP 191. Chest x-ray with no acute changes. CT scan of her spine showed T12 compression fracture. EKG: Sinus mechanism rate of 91, left axis deviation, LVH with nonspecific ST-T wave changes. Impression: 1. Severe back discomfort with recent fall and fracture of T12 2. No evidence of syncope by history 3. Acute renal injury probably from nonsteroidal 4. History of dementia 5. Elevated D-dimer, rule out DVT Plan: 1. Obtain an echocardiogram with Doppler 2. IV hydration 3. Duplex scan of the lower extremities, if no evidence of DVT, stop IV heparin 4. If there is no evidence of segmental wall motion abnormality, no further cardiac workup will be needed 5. Thank you for this consult we will follow with you Past Medical History Past Medical History: Asthma Additional Past Medical History / Comment(s): HX OSTEOPOROSIS History of Any Multi-Drug Resistant Organisms: None Reported Past Surgical History: Section, Orthopedic Surgery Additional Past Surgical History / Comment(s): MICHELINE KNEES MENISCUS REPAIR, SINUS SX Past Anesthesia/Blood Transfusion Reactions: No Reported Reaction Past Psychological History: Anxiety, Depression Smoking Status: Never smoker Past Alcohol Use History: Rare Past Drug Use History: None Reported - Past Family History Father Family Medical History: Cancer Additional Family Medical History / Comment(s): THROAT, SKIN Medications and Allergies Home Medications Medication Instructions Recorded Confirmed Type Albuterol Sulfate [Proair Hfa] 1 - 2 puff INHALATION Q6HR PRN 11/14/18 11/28/23 History FLUoxetine HCL 80 mg PO DAILY 11/14/18 11/28/23 History Raloxifene [Evista] 60 mg PO DIRECTED 11/14/18 11/28/23 History buPROPion HCL [Wellbutrin XL] 300 mg PO DAILY 11/14/18 11/28/23 History clonazePAM 0.5 mg PO BID 11/14/18 11/28/23 History traZODone HCL [Desyrel] 100 mg PO HS 11/14/18 11/28/23 History Acetaminophen [Tylenol Extra 1,000 mg PO Q6H PRN #60 tablet 11/25/23 11/28/23 Rx Strength] Ibuprofen [Motrin] 800 mg PO Q8H PRN #30 tab 11/25/23 11/28/23 Rx Lidocaine 5% Patch [Lidoderm 5% 1 patch TOPICAL DAILY PRN #30 patch 11/25/23 11/28/23 Rx Patch] "Goodsense" Allergy Tablet (24hr 1 dose PO DAILY 11/28/23 11/28/23 History Tab) Alendronate Sodium 70 mg PO TU 11/28/23 11/28/23 History Calcium/D3/Zinc/Copper/Darin 1 tab PO DAILY 11/28/23 11/28/23 History [Citracal-D3 Maximum Plus Caplt] Multivit-Min/Iron/Folic/Lutein 1 tab PO DAILY 11/28/23 11/28/23 History [Centrum Silver Women Tablet] polyethylene glycoL 3350 [Miralax] 17 gm PO DAILY 11/28/23 11/28/23 History Allergies Allergy/AdvReac Type Severity Reaction Status Date / Time codeine AdvReac Nausea & Verified 11/28/23 19:21 Vomiting Physical Exam Vitals: Vital Signs Temp Pulse Pulse Resp BP BP Pulse Ox 11/29/23 01:56 85 18 11/28/23 21:21 97.6 F 85 18 158/92 97 11/28/23 20:00 88 17 150/89 98 11/28/23 14:36 97.6 F 90 18 120/74 98 Intake and Output 11/28/23 11/29/23 11/29/23 22:59 06:59 14:59 Other: Voiding Method Toilet # Voids 0 3 Weight 54.431 kg Results 11/28/23 14:52 11/28/23 14:52 Cardiac Enzymes 11/28/23 11/28/23 11/28/23 Range/Units 14:52 14:52 18:23 AST 35 (14-36) U/L Troponin I <0.012 <0.012 (0.000-0.034) ng/mL 11/28/23 Range/Units 20:44 AST (14-36) U/L Troponin I <0.012 (0.000-0.034) ng/mL Coagulation 11/28/23 Range/Units 14:52 PT 10.3 (10.0-12.5) sec APTT 21.2 L (22.0-30.0) sec CBC 11/28/23 Range/Units 14:52 WBC 10.2 (3.8-10.6) k/uL RBC 5.13 (3.80-5.40) m/uL Hgb 15.8 (11.4-16.0) gm/dL Hct 47.3 H (34.0-46.0) % Plt Count 196 (150-450) k/uL Comprehensive Metabolic Panel 11/28/23 Range/Units 14:52 Sodium 137 (137-145) mmol/L Potassium 3.2 L (3.5-5.1) mmol/L Chloride 103 (98-107) mmol/L Carbon Dioxide 18 L (22-30) mmol/L BUN 45 H (7-17) mg/dL Creatinine 1.71 H (0.52-1.04) mg/dL Glucose 120 H (74-99) mg/dL Calcium 9.7 (8.4-10.2) mg/dL AST 35 (14-36) U/L ALT 32 (4-34) U/L Alkaline Phosphatase 95 (38-126) U/L Total Protein 6.9 (6.3-8.2) g/dL Albumin 4.0 (3.5-5.0) g/dL Current Medications Generic Name Dose Route Start Last Admin Trade Name Freq PRN Reason Stop Dose Admin Acetaminophen 1,000 mg 11/29/23 02:09 Acetaminophen Tab 500 Mg Tab PO Q6H PRN Pain Clonazepam 0.5 mg 11/29/23 09:00 Clonazepam 0.5 Mg Tab PO BID ESTELLA Fluoxetine HCl 80 mg 11/29/23 09:00 Fluoxetine Hcl 20 Mg Cap PO DAILY ESTELLA Heparin Sodium (Porcine) 0 unit 11/28/23 17:41 Heparin Sodium 1,000 Un/Ml (10ml Vl) IV PER PROTOCOL PRN Low PTT Protocol Heparin Sodium/Sodium Chloride 250 mls @ 9.798 mls/hr 11/28/23 17:45 11/28/23 18:50 25,000 unit/ Sodium Chloride IV 18 units/kg/hr .Q24H ESTELLA 9.798 mls/hr Administration Protocol 18 UNITS/KG/HR Sodium Chloride 1,000 mls @ 75 mls/hr 11/28/23 17:45 11/29/23 05:55 Saline 0.9% IV 75 mls/hr .[id number] ESTELLA Administration Naloxone HCl 0.2 mg 11/28/23 17:41 Naloxone 0.4 Mg/Ml 1 Ml Vial IV Q2M PRN Opioid Reversal Ondansetron HCl 4 mg 11/28/23 17:41 Ondansetron 4 Mg/2 Ml Vial IVP Q8HR PRN Nausea And Vomiting Pantoprazole Sodium 40 mg 11/29/23 07:30 02/09/24 05:55 Pantoprazole 40 Mg Tablet PO 40 mg [id number] ESTELLA Administration Trazodone HCl 100 mg 11/29/23 02:05 11/29/23 02:10 Trazodone Hcl 100 Mg Tab PO 100 mg HS ESTELLA Administration Intake and Output 11/28/23 11/29/23 11/29/23 22:59 06:59 14:59 Other: Voiding Method Toilet # Voids 0 3 Weight 54.431 kg 11/28/23 14:52 11/28/23 14:52
--- NOTE | 2023-11-29 08:21 | NM ---
EXAMINATION TYPE: NM pul vent and perfuse DATE OF EXAM: 11/29/2023 CLINICAL INDICATION: Female, 68 years old with history of PE; Comparison: 2023 TECHNIQUE: Utilizing inhalation of 66.5 mCi Tc 99m DTPA aerosol and intravenous injection of 5.4 mCi of Tc 99m MAA, ventilation and perfusion images are acquired post injection in multiple projections. FINDINGS: Normal radiotracer distribution is noted in the lungs. There is no evidence of mismatched defects. IMPRESSION: No evidence for pulmonary embolism
[2023-11-29] MEDS: ACETAMINOPHEN TAB 500 MG TAB PO PRN (08:31)
[2023-11-29] MEDS: clonazePAM 0.5 MG TAB PO SCH (09:44)
[2023-11-29] MEDS: FLUoxetine HCL 20 MG CAP PO SCH (09:44)
[2023-11-29 11:01] LABS: Basophils # (A) 0.05 X 10*3/uL (0.00-0.10); Basophils % (A) 0.6 %; Eosinophils # (A) 0.19 X 10*3/uL (0.04-0.35); Eosinophils % (A) 2.2 %; HCT 43.2 % (37.2-46.3); HGB 14.4 g/dL (12.0-15.0); Lymphocytes # (A) 2.74 X 10*3/uL (0.90-5.00); Lymphocytes % (A) 32.2 %; MCHC 33.3 g/dL (32.0-37.0); Mean Platelet Volume 10.8 FL (9.5-12.2); Monocytes % (A) 5.9 %; NRBC Per 100 WBC 0 X 10*3/uL (0.00-0.01); Neutrophils # (A) 4.95 X 10*3/uL (1.80-7.70); Neutrophils % (A) 58.2 %; Platelet Count 210 X 10*3/uL (140-440); RDW 12.2 % (11.5-14.5); WBC 8.51 X 10*3/uL (4.50-10.00)
--- NOTE | 2023-11-29 11:57 | US ---
EXAMINATION TYPE: US venous doppler duplex LE DATE OF EXAM: 11/29/2023 10:16 AM COMPARISON: NONE CLINICAL INDICATION: Female, 68 years old with history of high dimer; elevated d-dimer, no h/o of dvt , no symptoms SIDE PERFORMED: Bilateral TECHNIQUE: The lower extremity deep venous system is examined utilizing real time linear array sonog marly with graded compression, doppler sonography and color-flow sonography. VESSELS IMAGED: Common Femoral Vein Deep Femoral Vein Greater Saphenous Vein * Femoral Vein Popliteal Vein Small Saphenous Vein * Proximal Calf Veins (* superficial vessels) Right Leg: Negative for DVT Left Leg: Negative for DVT IMPRESSION: Grayscale, color doppler, spectral doppler imaging performed of the deep veins of the lo wer extremities. There is normal flow, compressibility, vascular waveforms.
--- NOTE | 2023-11-29 12:32 | CA ---
Transthoracic Echo Report Name: Macy Infante Age: 68 Gender: F : 1955 Exam Date: 11/29/2023 09:03 Exam Location: [facility] Ht (in): 62 Wt (lb): 120 Ordering Physician: Brian Will MD Attending/Referring Phys: A P Mechanic Love. Stanley RDCS Procedure CPT: Indications: dizziness Cardiac Hx: Technical Quality: Fair Contrast 1: Total Dose (mL): Contrast 2: Total Dose (mL): MEASUREMENTS (Male / Female) Normal Values 2D ECHO LV Diastolic Diameter PLAX 3.5 cm 4.2 - 5.9 / 3.9 - 5.3 cm LV Systolic Diameter PLAX 2.9 cm IVS Diastolic Thickness 1.4 cm 0.6 - 1.0 / 0.6 - 0.9 cm LVPW Diastolic Thickness 0.8 cm 0.6 - 1.0 / 0.6 - 0.9 cm LV Relative Wall Thickness 0.6 Aortic Root Diameter 2.9 cm LA Systolic Diameter LX 3.4 cm 3.0 - 4.0 / 2.7 - 3.8 cm DOPPLER AV Peak Velocity 148.1 cm/s AV Peak Gradient 8.8 mmHg AV Mean Velocity 76.2 cm/s AV Mean Gradient 2.8 mmHg AV Velocity Time Integral 23.2 cm LVOT Peak Velocity 79.2 cm/s LVOT Peak Gradient 2.5 mmHg LVOT Velocity Time Integral 14.9 cm MR Peak Velocity 416.3 cm/s MR Peak Gradient 69.3 mmHg Mitral E Point Velocity 63.7 cm/s Mitral A Point Velocity 90.7 cm/s Mitral E to A Ratio 0.7 MV Deceleration Time 215.4 ms PV Peak Velocity 68.4 cm/s PV Peak Gradient 1.9 mmHg FINDINGS Left Ventricle Left ventricular ejection fraction is estimated at 55-60 %.Normal left ventricular systolic function with no obvious regional wall motion abnormalities. Left ventricular cavity size normal. Right Ventricle Normal right ventricular size and function. Right Atrium Right atrium not well visualized. Left Atrium Normal left atrial size. Mitral Valve [id number] mitral regurgitation.structurally normal mitral valve. Aortic Valve Trileaflet aortic valve. No aortic valve stenosis or regurgitation. Tricuspid Valve Structurally normal tricuspid valve. Mild tricuspid regurgitation. Pulmonic Valve No pulmonic regurgitation.pulmonic valve not well visualized. Pericardium No pericardial effusion. Aorta Normal size aortic root and proximal ascending aorta. CONCLUSIONS 1. Normal left ventricular size and systolic function 2. Mild to moderate mitral with mild tricuspid regurgitation Previewed by: Dr. Brian Will MD (Electronically Signed) Final Date: 29 November 2023 12:32
[2023-11-29 12:44] LABS: ALT 32 U/L (8-44); AST 34 U/L (13-35); Albumin 3.7 g/dL (3.8-4.9); Albumin/Globulin Ratio 1.61 Ratio (1.60-3.17); Alkaline Phosphatase 84 U/L (41-126); BUN/Creat Ratio 31.38 Ratio (12.00-20.00); Blood Urea Nitrogen 25.1 mg/dL (9.0-27.0); Calcium 9.1 mg/dL (8.7-10.3); Carbon Dioxide 19.9 mmol/L (21.6-31.8); Chloride 106 mmol/L (96-109); Globulin 2.3 g/dL (1.6-3.3); Glucose 108 mg/dL (70-110); Magnesium 2.2 mg/dL (1.5-2.4); Phosphorus 2.7 mg/dL (2.4-5.1); Potassium 3.2 mmol/L (3.5-5.5); Sodium 140 mmol/L (135-145); Total Bilirubin <0.2 mg/dL (0.3-1.2)
[2023-11-29] MEDS ORDERED: traMADol 50 MG TAB PO PRN ×2 (14:03)
--- NOTE | 2023-11-29 14:46 | P.CNOR ---
History of Present Illness - HPI Consult date: 11/29/23 History of present illness: This is a 68 year old female who is admitted for evaluation after a possible syncopal episode. Orthopedics is consulted due to back pain from a recent fall that occurred on 11/23/2023. Patient is seen and evaluated at bedside today. The patient's is present in the room and gives the history stating that Macy has early Alzheimer's. Per the patient's , the patient fell and landed on a cement surrounding their fireplace. The patient was evaluated in the emergency room on 11/25/2023, x-rays were done and the patient was discharged home. Patient's states that on 11/28/2023 the patient was using her walker to ambulate and had a near syncopal episode and he had to catch her. The patient was then taken to the emergency room via ambulance for further evaluation. A CT of the lumbar spine was done revealing a T12 compression fracture. Patient states that she has been able to ambulate around her hospital room with a walker. Patient states that her lower back is painful, but she d enies any radicular pain, numbness, weakness or tingling. Patient's past medical history is significant for asthma and osteoporosis. Patient denies any fever/chills, chest pain, shortness breath, abdominal pain, numbness, weakness or tingling. Review of Systems See HPI. Past Medical History Past Medical History: Asthma Additional Past Medical History / Comment(s): HX OSTEOPOROSIS History of Any Multi-Drug Resistant Organisms: None Reported Past Surgical History: Section, Orthopedic Surgery Additional Past Surgical History / Comment(s): MICHELINE KNEES MENISCUS REPAIR, SINUS SX Past Anesthesia/Blood Transfusion Reactions: No Reported Reaction Past Psychological History: Anxiety, Depression Smoking Status: Never smoker Past Alcohol Use History: Rare Past Drug Use History: None Reported - Past Family History Father Family Medical History: Cancer Additional Family Medical History / Comment(s): THROAT, SKIN Medications and Allergies Home Medications Medication Instructions Recorded Confirmed Type Albuterol Sulfate [Proair Hfa] 1 - 2 puff INHALATION Q6HR PRN 11/14/18 11/28/23 History FLUoxetine HCL 80 mg PO DAILY 11/14/18 11/28/23 History Raloxifene [Evista] 60 mg PO DIRECTED 11/14/18 11/28/23 History buPROPion HCL [Wellbutrin XL] 300 mg PO DAILY 11/14/18 11/28/23 History clonazePAM 0.5 mg PO BID 11/14/18 11/28/23 History traZODone HCL [Desyrel] 100 mg PO HS 11/14/18 11/28/23 History Acetaminophen [Tylenol Extra 1,000 mg PO Q6H PRN #60 tablet 11/25/23 11/28/23 Rx Strength] Ibuprofen [Motrin] 800 mg PO Q8H PRN #30 tab 11/25/23 11/28/23 Rx Lidocaine 5% Patch [Lidoderm 5% 1 patch TOPICAL DAILY PRN #30 patch 11/25/23 11/28/23 Rx Patch] "Goodsense" Allergy Tablet (24hr 1 dose PO DAILY 11/28/23 11/28/23 History Tab) Alendronate Sodium 70 mg PO TU 11/28/23 11/28/23 History Calcium/D3/Zinc/Copper/Darin 1 tab PO DAILY 11/28/23 11/28/23 History [Citracal-D3 Maximum Plus Caplt] Multivit-Min/Iron/Folic/Lutein 1 tab PO DAILY 11/28/23 11/28/23 History [Centrum Silver Women Tablet] polyethylene glycoL 3350 [Miralax] 17 gm PO DAILY 11/28/23 11/28/23 History Allergies Allergy/AdvReac Type Severity Reaction Status Date / Time codeine AdvReac Nausea & Verified 11/28/23 19:21 Vomiting Physical Examination On exam patient is resting comfortably in bed in no acute distress. Patient is alert and oriented 3. On exam there is tenderness to palpation over the lower back and right flank. There is no step-off or deformity noted. There is no erythema, ecchymosis or swelling. Patient is able to sit up and lay down without any difficulty. Patient moves bilateral upper extremities and bilateral lower extremities freely and without difficulty. Sensation intact to bilateral lower extremities. Patient has full range of motion of bilateral feet and ankles. EHL intact bilaterally. Calves are soft nontender to palpation. Neurovascular status and circulatory status are intact. Results X-rays of the lumbar spine dated 11/25/[address] scan of the lumbar spine dated 11/28/2023 are reviewed revealing T12 compression fracture. - Labs Labs: Abnormal Lab Results - Last 24 Hours (Table) 11/28/23 11/28/23 11/28/23 Range/Units 14:52 14:52 14:52 Hct 47.3 H (34.0-46.0) % Immature Gran # (0.00-0.04) X 10*3/uL APTT 21.2 L (22.0-30.0) sec D-Dimer 2.05 H (<0.60) mg/L FEU Potassium 3.2 L (3.5-5.1) mmol/L Carbon Dioxide 18 L (22-30) mmol/L Anion Gap (4.00-12.00) mmol/L BUN 45 H (7-17) mg/dL Creatinine 1.71 H (0.52-1.04) mg/dL BUN/Creatinine Ratio (12.00-20.00) Ratio Glucose 120 H (74-99) mg/dL Phosphorus 5.6 H (2.5-4.5) mg/dL Total Bilirubin (0.3-1.2) mg/dL Total Protein (6.2-8.2) g/dL Albumin (3.8-4.9) g/dL Urine Protein (Negative) Urine Glucose (UA) (Negative) Urine Ketones (Negative) 11/28/23 11/29/23 11/29/23 Range/Units 18:20 07:09 07:09 Hct (34.0-46.0) % Immature Gran # 0.08 H (0.00-0.04) X 10*3/uL APTT (22.0-30.0) sec D-Dimer (<0.60) mg/L FEU Potassium 3.2 L (3.5-5.1) mmol/L Carbon Dioxide 19.9 L (22-30) mmol/L Anion Gap 14.10 H (4.00-12.00) mmol/L BUN (7-17) mg/dL Creatinine (0.52-1.04) mg/dL BUN/Creatinine Ratio 31.38 H (12.00-20.00) Ratio Glucose (74-99) mg/dL Phosphorus (2.5-4.5) mg/dL Total Bilirubin <0.2 L (0.3-1.2) mg/dL Total Protein 6.0 L (6.2-8.2) g/dL Albumin 3.7 L (3.8-4.9) g/dL Urine Protein Trace H (Negative) Urine Glucose (UA) Trace H (Negative) Urine Ketones 1+ H (Negative) 11/29/23 Range/Units 07:09 Hct (34.0-46.0) % Immature Gran # (0.00-0.04) X 10*3/uL APTT 167.1 H* (22.0-30.0) sec D-Dimer (<0.60) mg/L FEU Potassium (3.5-5.1) mmol/L Carbon Dioxide (22-30) mmol/L Anion Gap (4.00-12.00) mmol/L BUN (7-17) mg/dL Creatinine (0.52-1.04) mg/dL BUN/Creatinine Ratio (12.00-20.00) Ratio Glucose (74-99) mg/dL Phosphorus (2.5-4.5) mg/dL Total Bilirubin (0.3-1.2) mg/dL Total Protein (6.2-8.2) g/dL Albumin (3.8-4.9) g/dL Urine Protein (Negative) Urine Glucose (UA) (Negative) Urine Ketones (Negative) H & H 11/28/23 11/29/23 Range/Units 14:52 07:09 Hgb 15.8 14.4 (11.4-16.0) gm/dL Hct 47.3 H 43.2 (34.0-46.0) % Coagulation 11/28/23 Range/Units 14:52 INR 0.9 (<1.2) Result Diagrams: 11/29/23 07:09 11/29/23 07:09 Assessment and Plan (1) T12 compression fracture Current Visit: Yes Status: Acute Code(s): S22.080A - WEDGE COMPRESSION FRACTURE OF T11-T12 VERTEBRA, INIT SNOMED Code(s): 449696842 (2) Back pain Current Visit: Yes Status: Acute Code(s): M54.9 - DORSALGIA, UNSPECIFIED SNOMED Code(s): 841253811 (3) Fall Current Visit: Yes Status: Acute Code(s): W19.XXXA - UNSPECIFIED FALL, INITIAL ENCOUNTER SNOMED Code(s): 4832742 Plan: 1. Imaging is reviewed revealing T12 compression fracture. Recommend an LSO brace to be worn when out of bed. May remove the brace when lying in bed at less than 45 degrees. Recommend that patient continue use of her walker for stability. 2. There is no surgical intervention planned. Recommend physical therapy as needed for mobilization. We will continue to follow.
--- NOTE | 2023-11-29 16:09 | P.PN ---
Subjective Progress Note Date: 11/29/23 Still c/o back pain. Gen: In NAD, non-toxic HEENT: normocephalic, atraumatic, hearing acuity is intant, mucous membranes moist CVS: perfusing all extremities well, no pitting edema, Respiratory: symmetric chest expansion, no accessory muscle use, GI: soft, NTTP, ND, : no suprapubic tenderness, no CVA tenderness MSK/Derm: no rashes, cyanosis Neuro: CN II-XII intact, no motor weakness, Psych: cooperative, euthymic mood, judgment and insight is intact Hospital course: 68-year-old female with Alzheimer's dementia presented for for evaluation due to refractory right-sided back pain back pain. Assessment/plan: Near syncope suspected secondary to dehydration Acute kidney injury secondary to prerenal ATN -Fall precautions -IV fluid hydration with normal saline status post 1 L bolus continue at 75 cc/h -Follow-up renal function -Monitor urine output -Renal function showing BUN 45 creatinine 1.7 -Sodium 137 -Troponin negative -Urine analysis does not indicate urinary tract infection -Hemoglobin 15.8 -White count 10.2 -Chest x-ray no acute cardiopulmonary process -Lumbar spinal CT showed indeterminate age T12 compression fracture -CT of the abdomen pelvis no acute pathology Hypokalemia -Potassium 3.2 -Replace p.o. -Follow-up BMP Incidental finding of positive D-dimer this could be related to the fall injury -No hypoxemia -Check n VQ scan of the lungs -Low probability for PE -Patient on heparin drip started in the ED for possible underlying blood clot -Check venous Doppler ultrasound bilateral legs -On exam no leg edema no swelling no calf tenderness Recent fall with back injury indeterminate age T12 compression fracture -Ortho consult for evaluation -Pain control with Tylenol 1000 mg every 6 hours as needed -PT evaluation Full code Objective - Vital Signs Vital signs: Vital Signs Temp 97.4 F L 11/29/23 14:28 Pulse 83 11/29/23 14:28 Resp 14 11/29/23 14:28 BP 159/89 11/29/23 14:28 Pulse Ox 98 11/29/23 14:28 FiO2 Intake & Output 11/28/23 11/29/23 11/29/23 18:59 06:59 18:59 Intake Total 132.6 Balance 132.6 Weight 54.431 kg 54.431 kg Intake: Intake, IV Titration 132.6 Amount Heparin Sod,Pork in 0.45% 132.6 NaCl 25,000 unit In 0.45 % NaCl 1 250ml.bag @ 18 UNITS/KG/HR 9.798 mls/hr IV .Q24H [facility] Rx#: [id number] Oral 0 Other: Voiding Method Toilet # Voids 3 2 - Labs CBC & Chem 7: 11/29/23 07:09 11/29/23 07:09 Labs: Abnormal Lab Results - Last 24 Hours (Table) 11/28/23 11/29/23 11/29/23 Range/Units 18:20 07:09 07:09 Immature Gran # 0.08 H (0.00-0.04) X 10*3/uL APTT (22.0-30.0) sec Potassium 3.2 L (3.5-5.5) mmol/L Carbon Dioxide 19.9 L (21.6-31.8) mmol/L Anion Gap 14.10 H (4.00-12.00) mmol/L BUN/Creatinine Ratio 31.38 H (12.00-20.00) Ratio Total Bilirubin <0.2 L (0.3-1.2) mg/dL Total Protein 6.0 L (6.2-8.2) g/dL Albumin 3.7 L (3.8-4.9) g/dL Urine Protein Trace H (Negative) Urine Glucose (UA) Trace H (Negative) Urine Ketones 1+ H (Negative) 11/29/23 Range/Units 07:09 Immature Gran # (0.00-0.04) X 10*3/uL APTT 167.1 H* (22.0-30.0) sec Potassium (3.5-5.5) mmol/L Carbon Dioxide (21.6-31.8) mmol/L Anion Gap (4.00-12.00) mmol/L BUN/Creatinine Ratio (12.00-20.00) Ratio Total Bilirubin (0.3-1.2) mg/dL Total Protein (6.2-8.2) g/dL Albumin (3.8-4.9) g/dL Urine Protein (Negative) Urine Glucose (UA) (Negative) Urine Ketones (Negative)
[2023-11-30 06:56] LABS: African American GFR (CKD) >90 (>60 ml/min/1.73 sqM); Anion Gap 9 mmol/L; Blood Urea Nitrogen 13 mg/dL (7-17); Calcium 8.8 mg/dL (8.4-10.2); Carbon Dioxide 21 mmol/L (22-30); Chloride 109 mmol/L (98-107); Glucose 101 mg/dL (74-99); Non-African American GFR(CKD) >90 (>60 ml/min/1.73 sqM); Potassium 3.2 mmol/L (3.5-5.1); Sodium 139 mmol/L (137-145)
[2023-11-30] MEDS ORDERED: KETOROLAC 15 MG/ML 1 ML VIAL IVP PRN (09:12)
--- NOTE | 2023-11-30 09:12 | P.PN ---
Progress Note - Text Progress Note Date: 11/30/23 Patient is seen and examined today at bedside. The patient has some pain around the fracture site as expected. Pain is being somewhat controlled with medication. The patient patient has not been able to control her pain at home with oral medications with Ultram Tylenol and Motrin. Is any lower extremity weakness or radiculopathy. She denies any headaches or nausea. She has pain in her back with movement, changing positions and with coughing and sneezing. Physical Exam Afebrile with stable vital signs Abdomen is soft nontender. Chest has good excursion deep and space expiration At her back she has tenderness to palpation around her thoracolumbar junction. She has pain over her right lower ribs. There is no open wounds lacerations or abrasions. There is no gross bruising. Extremities have not had neurologic change from prior to surgery. Calves and thighs were soft nontender without evidence of DVT. The CT scans were reviewed. The abdominal CT shows the fracture at T12. The lumbar CT shows some degenerative changes Assessment/Plan Acute traumatic T12 compression fracture due to a fall [place] back pain with difficulty with ambulation, due to fracture Mild Alzheimer's The patient has not had good control of her or pain with her oral medications at home. I think we can increase her pain medication for short-term while she deals with this new fracture. We will prescribe her [place] to see if she is able to tolerate it. Patient has a LSO brace at bedside. She has been instructed with use for this. I think she should use this whenever she is up out of bed and elevated more than 45 degrees. She says that she already feels somewhat more comfortable with the brace on and she should try to continue to use this for her mobility. Will have therapy see her as well for further mobilization and training. We will continue to increase the patient's mobilization with therapy. Once her pain is better controlled and she is using her brace adequately for mobilization is okay for her to be discharged home today if this will likely be tomorrow and will plan for close follow-up on outpatient basis in 1 week. The patient is a candidate for surgical intervention with kyphoplasty. We discussed the different treatment options ranging from conservative to surgical and would like to see how conservative treatment goes before considering surgical option. I explained this to the patient and her at bedside and they are agreeable. If she is having worsening she would consider kyphoplasty. We will continue pain control with oral or IV medications. We'll continue to follow patient closely.
[2023-11-30] MEDS: HYDROcodone/APAP 5-325MG 1 EACH TAB PO PRN (09:19)
--- NOTE | 2023-11-30 13:12 | P.PN ---
Subjective Progress Note Date: 11/30/23 Back pain is still present but improving. Seen with ortho and discussed with them - pt will be managed conservatively and seen in office for possible kyphoplasty depending on pain control. Plan is for trial of norco today and likely discharge tomorrow. Gen: In NAD, non-toxic HEENT: normocephalic, atraumatic, hearing acuity is intant, mucous membranes moist CVS: perfusing all extremities well, no pitting edema, Respiratory: symmetric chest expansion, no accessory muscle use, GI: soft, NTTP, ND, : no suprapubic tenderness, no CVA tenderness MSK/Derm: no rashes, cyanosis Neuro: CN II-XII intact, no motor weakness, Psych: cooperative, euthymic mood, judgment and insight is intact Hospital course: 68-year-old female with Alzheimer's dementia presented for for evaluation due to refractory right-sided back pain back pain. Assessment/plan: Near syncope suspected secondary to dehydration Acute kidney injury secondary to prerenal ATN -Fall precautions -IV fluid hydration with normal saline status post 1 L bolus continue at 75 cc/h -Follow-up renal function -Monitor urine output -Renal function showing BUN 45 creatinine 1.7 -Sodium 137 -Troponin negative -Urine analysis does not indicate urinary tract infection -Hemoglobin 15.8 -White count 10.2 -Chest x-ray no acute cardiopulmonary process -Lumbar spinal CT showed indeterminate age T12 compression fracture -CT of the abdomen pelvis no acute pathology Hypokalemia -Potassium 3.2 -Replace p.o. -Follow-up BMP Incidental finding of positive D-dimer this could be related to the fall injury -No hypoxemia -Check n VQ scan of the lungs -Low probability for PE -Patient on heparin drip started in the ED for possible underlying blood clot -Check venous Doppler ultrasound bilateral legs -On exam no leg edema no swelling no calf tenderness Recent fall with back injury indeterminate age T12 compression fracture -Ortho consult for evaluation -Pain control with Tylenol 1000 mg every 6 hours as needed -PT evaluation Full code Objective - Vital Signs Vital signs: Vital Signs Temp 97.6 F 11/30/23 07:00 Pulse 85 11/30/23 07:00 Resp 15 11/30/23 07:00 BP 147/81 11/30/23 07:00 Pulse Ox 97 11/30/23 07:00 FiO2 Intake & Output 11/29/23 11/30/23 11/30/23 18:59 06:59 18:59 Intake Total 132.6 Balance 132.6 Intake: Intake, IV Titration 132.6 Amount Heparin Sod,Pork in 0.45% 132.6 NaCl 25,000 unit In 0.45 % NaCl 1 250ml.bag @ 18 UNITS/KG/HR 9.798 mls/hr IV .Q24H ESTELLA Rx#: [id number] Oral 0 Other: Voiding Method Toilet # Voids 2 1 - Labs CBC & Chem 7: 11/29/23 07:09 11/30/23 05:48 Labs: Abnormal Lab Results - Last 24 Hours (Table) 11/30/23 Range/Units 05:48 Potassium 3.2 L (3.5-5.1) mmol/L Chloride 109 H (98-107) mmol/L Carbon Dioxide 21 L (22-30) mmol/L Creatinine 0.48 L (0.52-1.04) mg/dL Glucose 101 H (74-99) mg/dL
[2023-11-30] MEDS: POTASSIUM CHLORIDE ER 20 MEQ TAB.ER PO STA (17:10)
[2023-12-01 07:57] VITALS: BP 114/64; PULSE 80; RESP 15; TEMP 97.2
--- NOTE | 2023-12-01 09:24 | P.PN ---
Subjective Progress Note Date: 12/01/23 This is a 68-year-old female and orthopedics is following for T12 compression fracture. Patient is seen and evaluated at bedside today. is present in the room today. Patient states that her pain is better controlled with [place] and she has been able to ambulate down the iraheta with her brace on. Patient denies any new complaints today. Objective - Vital Signs Vital signs: Vital Signs Temp 97.2 F L 12/01/23 07:00 Pulse 80 12/01/23 07:00 Resp 15 12/01/23 07:00 BP 114/64 12/01/23 07:00 Pulse Ox 95 12/01/23 07:00 FiO2 Intake & Output 11/30/23 12/01/23 12/01/23 18:59 06:59 18:59 Other: Voiding Method Toilet # Voids 2 1 # Bowel Movements 0 - Exam On exam patient is resting comfortably in bed no acute distress. Patient is alert and oriented. Bilateral lower extremities are warm and well-perfused. Patient is able to flex and extend bilateral lower extremities without pain or difficulty. Calves are soft and nontender to palpation bilaterally. Sensation intact bilaterally. Neurovascular status and circulatory status are intact to bilateral lower extremities. - Labs CBC & Chem 7: 11/29/23 07:09 11/30/23 05:48 Assessment and Plan (1) T12 compression fracture Current Visit: Yes Status: Acute Code(s): S22.080A - WEDGE COMPRESSION FRACTURE OF T11-T12 VERTEBRA, INIT SNOMED Code(s): 770966775 (2) Back pain Current Visit: Yes Status: Acute Code(s): M54.9 - DORSALGIA, UNSPECIFIED SNOMED Code(s): 437812648 (3) Fall Current Visit: Yes Status: Acute Code(s): W19.XXXA - UNSPECIFIED FALL, INITIAL ENCOUNTER SNOMED Code(s): 0569033 Plan: 1. Recommend an LSO brace to be worn when out of bed. May remove the brace when lying in bed at less than 45 degrees. Recommend that patient continue use of her walker for stability. 2. There is no surgical intervention planned. Patient is planning on discharge home today.
--- NOTE | 2023-12-01 11:24 | P.DS ---
Providers Date of admission: 11/28/23 17:42 Expected date of discharge: 12/01/23 Attending physician: Darrick Moya MD Consults: 11/29/23 02:09 Consult Physician Routine Consulting Provider: Samantha Recinos Consult Reason/Comments: t12 compression fracture, intractable back pain Do you want consulting provider notified?: Yes, Notify in am Primary care physician: Issac [facility] Course: Near syncope suspected secondary to dehydration Acute kidney injury secondary to prerenal ATN Hypokalemia Incidental finding of positive D-dimer this could be related to the fall injury Recent fall with back injury indeterminate age T12 compression fracture Gen: In NAD, non-toxic HEENT: normocephalic, atraumatic, hearing acuity is intant, mucous membranes moist CVS: perfusing all extremities well, no pitting edema, Respiratory: symmetric chest expansion, no accessory muscle use, GI: soft, NTTP, ND, : no suprapubic tenderness, no CVA tenderness MSK/Derm: no rashes, cyanosis Neuro: CN II-XII intact, no motor weakness, Psych: cooperative, euthymic mood, judgment and insight is intact Hospital course: 68-year-old female with Alzheimer's dementia presented for for evaluation due to refractory right-sided back pain back pain. Pt had a fall a few weeks ago when the pain started. Renal function showed BUN 45, Cr 1.7. CXR no acute cadiopulmonary process. Lumbar spine CT showed indeterminate age T12 compression fracture. CT A/P no acute pathology. Pt seen by ortho for cmpression fracture, and they recommended TLSO brace and pain control. Pt improved with this - she will f/u with ortho in clinic for consideration of kyphoplasty. She will also f/u with PCP. I spent 32 minutes coordinating this discharge on 12/01 Patient Condition at Discharge: Good Plan - Discharge Summary Discharge Rx Participant: No New Discharge Prescriptions: New HYDROcodone/APAP 5-325MG [[place] 5-325] 1 tab PO Q6HR PRN 7 Days #28 tab PRN Reason: Pain Sennosides-Docusate Sodium [Senokot-S] 1 tab PO BID #60 tablet Continue Albuterol Sulfate [Proair Hfa] 1 - 2 puff INHALATION Q6HR PRN PRN Reason: Shortness Of Breath buPROPion HCL [Wellbutrin XL] 300 mg PO DAILY traZODone HCL [Desyrel] 100 mg PO HS clonazePAM 0.5 mg PO BID FLUoxetine HCL 80 mg PO DAILY Ibuprofen [Motrin] 800 mg PO Q8H PRN #30 tab PRN Reason: Pain Lidocaine 5% Patch [Lidoderm 5% Patch] 1 patch TOPICAL DAILY PRN #30 patch PRN Reason: Pain Acetaminophen [Tylenol Extra Strength] 1,000 mg PO Q6H PRN #60 tablet PRN Reason: Pain polyethylene glycoL 3350 [Miralax] 17 gm PO DAILY Multivit-Min/Iron/Folic/Lutein [Centrum Silver Women Tablet] 1 tab PO DAILY "Goodsense" Allergy Tablet (24hr Tab) 1 dose PO DAILY Calcium/D3/Zinc/Copper/Darin [Citracal-D3 Maximum Plus Caplt] 1 tab PO DAILY Raloxifene [Evista] 60 mg PO DIRECTED #0 Alendronate Sodium 70 mg PO TU Discharge Medication List Albuterol Sulfate [Proair Hfa] 1 - 2 puff INHALATION Q6HR PRN 11/14/18 [History] FLUoxetine HCL 80 mg PO DAILY 11/14/18 [History] buPROPion HCL [Wellbutrin XL] 300 mg PO DAILY 11/14/18 [History] clonazePAM 0.5 mg PO BID 11/14/18 [History] traZODone HCL [Desyrel] 100 mg PO HS 11/14/18 [History] Acetaminophen [Tylenol Extra Strength] 1,000 mg PO Q6H PRN #60 tablet 11/25/23 [Rx] Ibuprofen [Motrin] 800 mg PO Q8H PRN #30 tab 11/25/23 [Rx] Lidocaine 5% Patch [Lidoderm 5% Patch] 1 patch TOPICAL DAILY PRN #30 patch 11/25/23 [Rx] "Goodsense" Allergy Tablet (24hr Tab) 1 dose PO DAILY 11/28/23 [History] Alendronate Sodium 70 mg PO TU 11/28/23 [History] Calcium/D3/Zinc/Copper/Darin [Citracal-D3 Maximum Plus Caplt] 1 tab PO DAILY 11/28/23 [History] Multivit-Min/Iron/Folic/Lutein [Centrum Silver Women Tablet] 1 tab PO DAILY 11/28/23 [History] polyethylene glycoL 3350 [Miralax] 17 gm PO DAILY 11/28/23 [History] HYDROcodone/APAP 5-325MG [[place] 5-325] 1 tab PO Q6HR PRN 7 Days #28 tab 11/30/23 [Rx] Raloxifene [Evista] 60 mg PO DIRECTED #0 12/01/23 [Rx] Sennosides-Docusate Sodium [Senokot-S] 1 tab PO BID #60 tablet 12/01/23 [Rx] Follow up Appointment(s)/Referral(s): Samantha Recinos DO [Doctor of Osteopathic Medicine] - 1 Week Issac Pederson DO [Primary Care Provider] - 1-2 days Patient Instructions/Handouts: Fall Prevention for Older Adults (DC) Activity/Diet/Wound Care/Special Instructions: LSO brace to be worn whenever out of bed. May remove for bathing and if reclined less than 45 degrees. May ambulate as tolerated with LSO brace on. Avoid heavy or rigorous activity. No bending twisting or lifting. No overhead work. Raloxifene and Alendronate should be re-evaluated by your PCP - uncommon for both of these medications to be taken together Discharge Disposition: HOME SELF-CARE
== END 2023-12-01 11:10 | disposition home or self-care (01) ==
LOC: EC 14:30 → 6NMEDSUR 17:42
PROVIDERS: ADMIT Internal Medicine; ATTEND Internal Medicine
DX: R55 Syncope and collapse (principal); S22.089A Unspecified fracture of T11-T12 vertebra, initial encounter for closed fracture; S20.219A Contusion of unspecified front wall of thorax, initial encounter; W19.XXXA Unspecified fall, initial encounter; N17.9 Acute kidney failure, unspecified; R79.89 Other specified abnormal findings of blood chemistry; E86.0 Dehydration; R53.1 Weakness; J45.909 Unspecified asthma, uncomplicated; F41.9 Anxiety disorder, unspecified; F32.A Depression, unspecified; G30.0 Alzheimer's disease with early onset; F02.A0 Dementia in other diseases classified elsewhere, mild, without behavioral disturbance, psychotic disturbance, mood disturbance, and anxiety; E87.6 Hypokalemia; Z79.899 Other long term (current) drug therapy; Z88.5 Allergy status to narcotic agent
CPT/HCPCS: 96361 ×3; 96366 ×3; 96365; 99285; 36415; 93005; 93306; 85379; 83880; 80053 ×2; 80048; 83605; 83735 ×2; 84100 ×2; 84484; 85025 ×2; 85610; 85730 ×2; 81003; 71046; 93970; 72131; 74176; 78582; G0378 ×4; A9540; A9567; J1644 ×2

== ENCOUNTER → 2023-12-17 | Outpatient (CLI) | payer MEDICARE ==
[2023-12-17 09:17] LABS: Partial Thromboplastin Time 25.3 sec (22.0-30.0); Prothrombin Time 10.6 sec (10.0-12.5)
--- NOTE | 2023-12-17 09:19 | XR ---
EXAMINATION TYPE: XR chest 2V DATE OF EXAM: 12/17/2023 COMPARISON: 11/28/2023 INDICATION: Presurgical testing TECHNIQUE: Frontal and lateral views of the chest are obtained. FINDINGS: The heart size is normal. The pulmonary vasculature is normal. The lungs are clear. There is likely some chronic degenerative change at the right shoulder. MRI can be performed as clinically indicated. IMPRESSION: 1. No acute pulmonary process.
[2023-12-17 15:30] LABS: Basophils # (A) 0.05 X 10*3/uL (0.00-0.10); Basophils % (A) 0.9 %; Eosinophils # (A) 0.26 X 10*3/uL (0.04-0.35); Eosinophils % (A) 4.5 %; HCT 43.8 % (37.2-46.3); HGB 14.6 g/dL (12.0-15.0); Lymphocytes % (A) 33.2 %; MCH 30.7 pg (27.0-32.0); MCHC 33.3 g/dL (32.0-37.0); MCV 92.2 FL (80.0-97.0); Mean Platelet Volume 11.3 FL (9.5-12.2); Monocytes # (A) 0.34 X 10*3/uL (0.20-1.00); Monocytes % (A) 5.9 %; NRBC Per 100 WBC 0 X 10*3/uL (0.00-0.01); Neutrophils # (A) 3.15 X 10*3/uL (1.80-7.70); Neutrophils % (A) 55.2 %; Platelet Count 218 X 10*3/uL (140-440); RBC 4.75 X 10*6/uL (4.10-5.20); RDW 12.7 % (11.5-14.5); WBC 5.72 X 10*3/uL (4.50-10.00)
[2023-12-17 16:03] LABS: Calcium 9.3 mg/dL (8.7-10.3); Carbon Dioxide 22.3 mmol/L (21.6-31.8); Chloride 108 mmol/L (96-109); Glucose 115 mg/dL (70-110); Potassium 4.2 mmol/L (3.5-5.5); Sodium 141 mmol/L (135-145)
== END | disposition home or self-care (01) ==
LOC: LABPAT 08:17
PROVIDERS: ATTEND Orthopaedic Surgery Orthopaedic Surgery of the Spine
DX: Z01.818 Encounter for other preprocedural examination (principal); S22.080A Wedge compression fracture of T11-T12 vertebra, initial encounter for closed fracture; X58.XXXA Exposure to other specified factors, initial encounter
CPT/HCPCS: 36415; 71046; 80048; 85025; 85610; 85730

== ENCOUNTER → 2024-04-20 | Outpatient (CLI) | payer MEDICARE ==
--- NOTE | 2024-04-22 14:52 | MM ---
Reason for Exam: Screening (asymptomatic). Last mammogram was performed 1 year(s) and 7 month(s) ago. Patient History: Menarche at age 12. First Full-Term at age 27. Postmenopausal. Estrogen for 6 months starting at age 50. Risk Values: Radha 5 year model risk: 1.7%. NCI Lifetime model risk: 5.1%. Prior Study Comparison: 01/14/2018 Bilateral Screening Mammogram, [facility]. 01/27/2021 Bilateral Screening Mammogram, [facility]. 10/10/2022 Bilateral MG 3D screening mammo w/cad, [facility]. Tissue Density: The breasts are heterogeneously dense, which may obscure small masses. Findings: Analyzed By CAD. No dominant mass or architectural distortion. Loosely grouped calcifications upper outer quadrant left breast. Benign appearing calcifications. Overall Assessment: Incomplete: need additional imaging evaluation, BI-RAD 0 Management: Diagnostic Mammogram of the left breast. . Patient should continue monthly self-breast exams. A clinical breast exam by your physician is recommended on an annual basis. This exam should not preclude additional follow-up of suspicious palpable abnormalities. Note on Radha scores and lifetime risk: 1. A Radha score greater than 3% is considered moderate risk. If this is the case, consider specialist referral to assess eligibility for a risk reducing agent. 2. If overall lifetime risk for the development of breast cancer is 20% or higher, the patient may qualify for future screening with alternating mammogram and breast MRI. Electronically signed and approved by: Farooq Broderick M.D. Radiologis
== END | disposition home or self-care (01) ==
LOC: RADMAMWWP 10:22
PROVIDERS: ATTEND Internal Medicine
DX: Z12.31 Encounter for screening mammogram for malignant neoplasm of breast (principal); Z78.0 Asymptomatic menopausal state
CPT/HCPCS: 77063; 77067

== ENCOUNTER → 2024-04-29 | Outpatient (CLI) | payer MEDICARE ==
--- NOTE | 2024-04-29 10:34 | MM ---
Reason for Exam: Additional evaluation requested from abnormal screening. Last screening mammogram was performed less than 1 month ago. Patient History: Menarche at age 12. First Full-Term at age 27. Postmenopausal. Estrogen for 6 months starting at age 50. Risk Values: Radha 5 year model risk: 1.7%. NCI Lifetime model risk: 5.1%. Prior Study Comparison: 01/27/2021 Bilateral Screening Mammogram, [facility]. 10/10/2022 Bilateral MG 3D screening mammo w/cad, [facility]. 04/20/2024 Bilateral MG 3D screening mammo w/cad, [facility]. Tissue Density: Left: The breasts are heterogeneously dense, which may obscure small masses. Findings: Analyzed By CAD. Pattern appears stable. Under magnification the heterogenous calcifications are adjacent to multiple punctate calcifications as well. Findings are mildly suspicious. Stereotactic core biopsy is recommended. Overall Assessment: Suspicious, BI-RAD 4 Management: Stereotactic Core Biopsy of the left breast. A negative mammogram report should not preclude additional follow up of suspicious palpable abnormalities. Patient should continue monthly self breast exam. A clinical breast exam by your physician is recommended on an annual basis and results should be correlated with mammographic findings. Note on Radha scores and lifetime risk: 1. A Radha score greater than 3% is considered moderate risk. If this is the case, consider specialist referral to assess eligibility for a risk reducing agent. 2. If overall lifetime risk for the development of breast cancer is 20% or higher, the patient may qualify for future screening with alternating mammogram and breast MRI. Electronically signed and approved by: Wong Frey D.O. Radiologis
== END | disposition home or self-care (01) ==
LOC: RADMAMWWP 09:56
PROVIDERS: ATTEND Internal Medicine
DX: R92.332 Mammographic heterogeneous density, left breast (principal); R92.8 Other abnormal and inconclusive findings on diagnostic imaging of breast; Z78.0 Asymptomatic menopausal state
CPT/HCPCS: 77065; G0279; 77061

== ENCOUNTER → 2024-05-07 | Outpatient (CLI) | payer MEDICARE ==
[2024-05-07 07:56] VITALS: RESP 17; TEMP 98.3
--- NOTE | 2024-05-07 08:14 | P.GSCN ---
History of Present Illness Consult date: 05/07/24 Reason for Consult: Abnormal left breast mammogram Requesting physician: Issac Pederson History of present illness: Macy is a 68-year-old female who underwent a routine mammogram on 04-20-2024. This revealed some calcifications of concern in the left breast. Additional views were obtained on 04-29-2024 and under magnification the heterogeneous calcifications were adjacent to multiple punctate calcifications. The findings were felt to be mildly suspicious and stereotactic core biopsy was recommended. The patient does not feel any lumps masses or nodules of concern in either breast. She has never had any surgery or biopsies of her breast. She is not complaining of any nipple discharge. She does have a recent new mole in the upper outer aspect of the left breast. She is not complaining of any trauma or infection in her breast. Caffeine: 2 drinks/day nicotine: none chocolate: daily BCP: used for about 7 years hormones: none Family History: father: throat cancer Hormonal History: menarche: 12 , age at first : 27, breast fed: yes menopause: 43 Surgical History: times 2 3 menicus surgery sinus surgery surgery for endometriosis Medical History: asthma early onset dementia with ataxia Social History: nicotine: none alcohol: none drugs: none Review of Systems - Constitutional Reports sweats - EENT Eyes: denies blurred vision Ears: bilateral: decreased hearing (bilateral ears), deny: tinnitus Ears, nose, mouth and throat: Denies dysphagia - Breasts bilateral: as per HPI - Cardiovascular Denies chest pain, Denies shortness of breath - Respiratory Denies cough, Denies 7 - Gastrointestinal Reports as per HPI - Genitourinary Genitourinary: Denies dysuria, Denies hematuria Menstruation: Reports postmenopausal - Musculoskeletal Musculoskeleta Comment(s): compression fracture T12 Nov 2023 Reports as per HPI - Integumentary Denies rash, Denies unusual bruising - Neurological Reports as per HPI - Psychiatric Reports anxiety - Endocrine Reports as per HPI - Hematologic/Lymphatic Denies easy bleeding, Denies easy bruising - Allergic/Immunologic Reports as per HPI, Reports seasonal allergies Past Medical History Past Medical History: Asthma Additional Past Medical History / Comment(s): HX OSTEOPOROSIS. Ataxia. Alzheimers dementia History of Any Multi-Drug Resistant Organisms: None Reported Past Surgical History: Section, Orthopedic Surgery Additional Past Surgical History / Comment(s): MICHELINE KNEES MENISCUS REPAIR, SINUS SX. Past Anesthesia/Blood Transfusion Reactions: No Reported Reaction Past Psychological History: Anxiety, Depression Additional Psychological History / Comment(s): alzheimers dementia early stages Smoking Status: Never smoker Past Alcohol Use History: None Reported Past Drug Use History: None Reported - Past Family History Father Family Medical History: Cancer Additional Family Medical History / Comment(s): THROAT, SKIN Medications and Allergies Home Medications Medication Instructions Recorded Confirmed Type clonazePAM 0.5 mg PO BID 11/14/18 05/07/24 History traZODone HCL [Desyrel] 100 mg PO HS 11/14/18 05/07/24 History Ibuprofen [Motrin] 800 mg PO Q8H PRN #30 tab 11/25/23 05/07/24 Rx "Goodsense" Allergy Tablet (24hr 1 dose PO DAILY 11/28/23 05/07/24 History Tab) Multivit-Min/Iron/Folic/Lutein 1 tab PO DAILY 11/28/23 05/07/24 History [Centrum Silver Women Tablet] HYDROcodone/APAP 5-325MG [[place] 1 tab PO Q6HR PRN 7 Days #28 tab 11/30/23 05/07/24 Rx 5-325] Alendronate Sodium [Fosamax] 70 mg PO WEEKLY 04/30/24 05/07/24 History Allergies Allergy/AdvReac Type Severity Reaction Status Date / Time codeine AdvReac Nausea & Verified 05/07/24 07:23 Vomiting Surgical - Exam Vital Signs Temp Resp 98.3 F 17 05/07/24 07:53 05/07/24 07:53 - General no distress - Eyes normal ocular movement - Neck trachea midline - Respiratory normal respiratory effort, clear to auscultation - Cardiovascular Heart Sounds: normal: S1, S2 - Abdomen Abdomen: soft, non tender, no guarding, no rigid, no rebound - Integumentary normal turgor, nevus left breast upper outer quadrant - Musculoskeletal uses a walker - Psychiatric oriented to time, oriented to person, oriented to place, speech is normal, memory intact Breast Exam: BRA: 38C Inspection: Nevus upper outer quadrant left breast, bilateral grade 2 ptosis Palpation: Right breast: Multi positional exam fibrocystic changes no dominant masses or nodules of concern Right axilla: No adenopathy of concern Left breast: Multi positional exam fibrocystic changes no dominant masses or nodules of concern Left axilla: No adenopathy of concern Results Mammogram reviewed, microcalcifications of concern left breast upper outer quadr ant Assessment and Plan Assessment: Impression: Radiographic abnormality left breast upper outer quadrant Nevus left breast upper outer quadrant dementia/ataxia Plan: Stereotactic core biopsy left breast Excision of nevus left breast Risk and benefits of stereotactic core biopsy discussed with the patient and her . Risk include but are not limited to bleeding, infection, reaction to the anesthetic. If the biopsy specimen were felt to be discordant then further tissue acquisition may be necessary. They understand and wish to proceed. Following results of the stereotactic core biopsy decision on where to excise the nevus on the left breast will be made. CC: Dr. Pederson
== END ==
LOC: WWCWWP 07:03
PROVIDERS: ATTEND Surgery
DX: R92.8 Other abnormal and inconclusive findings on diagnostic imaging of breast (principal); R92.1 Mammographic calcification found on diagnostic imaging of breast; D22.9 Melanocytic nevi, unspecified; F02.80 Dementia in other diseases classified elsewhere, unspecified severity, without behavioral disturbance, psychotic disturbance, mood disturbance, and anxiety; R27.0 Ataxia, unspecified; Z88.5 Allergy status to narcotic agent

== ENCOUNTER → 2024-05-07 | Day surgery (SDC) | payer MEDICARE ==
[2024-05-07] MEDS: ALPRAZolam 0.25 MG TAB PO PRN (07:29)
[2024-05-07 07:39] VITALS: RESP 16
[2024-05-07 09:32] VITALS: BP 141/80; PULSE 90; TEMP 98.1
--- NOTE | 2024-05-07 14:48 | MM ---
Date of Procedure: 05/07/24 Preoperative Diagnosis: Microcalcifications of concern left breast Postoperative Diagnosis: Same Procedure(s) Performed: Left breast stereotactic core biopsy Anesthesia: local Surgeon: Selin Jones Pathology: other (Breast tissue/radiograph reveals microcalcifications of concern) Condition: stable Disposition: same day Indications for Procedure: Microcalcifications of concern left breast upper mid breast Operative Findings: Radiograph of specimen reveals microcalcifications of concern Description of Procedure: The patient is a 68-year-old female who on a routine screening mammogram was noted to have microcalcifications of concern in the left breast in the upper mid breast. Diagnostic mammogram confirmed that although there were coarse calcifications there were some smaller punctate calcifications in the vicinity of 2 small groups of calcifications and stereotactic core biopsy was recommended. This was reviewed with Dr. Frey from radiology. Risk and benefits of the procedure were discussed with the patient and she wished to proceed with a stereotactic core biopsy. This was also discussed with the patient's . The patient was taken to the stereotactic core biopsy room. She was positioned in the upright chair. A retail seasonal specialist film was obtained. The area of concern was identified. This was targeted. The breast was prepped using chlorhexidine. 20 cc of 1% lidocaine were used to anesthetize the area of concern. An 18-gauge vacuum-assisted core rotating biopsy needle was driven to the correct coordinates. A prefire film was obtained. The needle was noted to be in the correct location. The needle was fired. A post fire film was obtained. The depth of the needle was noted to be inadequate. The needle was advanced. The coordinates were adjusted. A repeat film revealed the needle to be in the correct location. 15 core biopsy specimens were obtained. Radiograph of the specimen revealed the calcifications of concern had been adequately sampled. A secure vandana Top-Hat clip was placed. The patient tolerated the procedure in stable condition. Postprocedure radiograph will be obtained to confirm clip placement. The patient will follow-up with Dr. Lozano next week. The patient's specimen will be sent to pathology. She will call us sooner any questions or concerns. JEN
== END ==
LOC: RADMAMWWP 07:05
PROVIDERS: ATTEND Surgery
DX: N60.12 Diffuse cystic mastopathy of left breast (principal); R92.8 Other abnormal and inconclusive findings on diagnostic imaging of breast
CPT/HCPCS: 88305; 19081; A4648; J2001

== ENCOUNTER → 2024-05-14 | Outpatient (CLI) | payer MEDICARE ==
[2024-05-14 14:33] VITALS: BP 163/85; PULSE 106; RESP 18; TEMP 97.4
--- NOTE | 2024-05-14 14:42 | P.PN ---
Subjective Progress Note Date: 05/14/24 Principal diagnosis: fibrocystic breast disease Macy is a 68-year-old female who underwent a routine mammogram on 04-20-2024. This revealed some calcifications of concern in the left breast. Additional views were obtained on 04-29-2024 and under magnification the heterogeneous calcifications were adjacent to multiple punctate calcifications. The findings were felt to be mildly suspicious and stereotactic core biopsy was recommended. The patient does not feel any lumps masses or nodules of concern in either breast. She has never had any surgery or biopsies of her breast. She is not complaining of any nipple discharge. She does have a recent new mole in the upper outer aspect of the left breast. She is not complaining of any trauma or infection in her breast. Stero biopsy was done on 05-06-24 and was benign concordant. Did develop ecchymosis following the procedure at the biopsy site began to get swollen about 2 hours after the patient went home Caffeine: 2 drinks/day nicotine: none chocolate: daily BCP: used for about 7 years hormones: none Family History: father: throat cancer Hormonal History: menarche: 12 , age at first : 27, breast fed: yes menopause: 43 Surgical History: times 2 3 menicus surgery sinus surgery surgery for endometriosis Medical History: asthma early onset dementia with ataxia Social History: nicotine: none alcohol: none drugs: none Review of Systems - Constitutional Reports sweats - EENT Eyes: denies blurred vision Ears: bilateral: decreased hearing (bilateral ears), deny: tinnitus Ears, nose, mouth and throat: Denies dysphagia - Breasts bilateral: as per HPI - Cardiovascular Denies chest pain, Denies shortness of breath - Respiratory Denies cough - Gastrointestinal Reports as per HPI - Genitourinary Genitourinary: Denies dysuria, Denies hematuria Menstruation: Reports postmenopausal - Musculoskeletal Musculoskeleta Comment(s): compression fracture T12 Nov 2023 Reports as per HPI - Integumentary Denies rash, Denies unusual bruising - Neurological Reports as per HPI - Psychiatric Reports anxiety - Endocrine Reports as per HPI - Hematologic/Lymphatic Denies easy bleeding, Denies easy bruising - Allergic/Immunologic Reports as per HPI, Reports seasonal allergies Past Medical History Past Medical History: Asthma Additional Past Medical History / Comment(s): HX OSTEOPOROSIS. Ataxia. Alzheimers dementia History of Any Multi-Drug Resistant Organisms: None Reported Past Surgical History: Section, Orthopedic Surgery Additional Past Surgical History / Comment(s): MICHELINE KNEES MENISCUS REPAIR, SINUS SX. Past Anesthesia/Blood Transfusion Reactions: No Reported Reaction Past Psychological History: Anxiety, Depression Additional Psychological History / Comment(s): alzheimers dementia early stages Smoking Status: Never smoker Past Alcohol Use History: None Reported Past Drug Use History: None Reported - Past Family History Father Family Medical History: Cancer Additional Family Medical History / Comment(s): THROAT, SKIN Medications and Allergies Home Medications Medication Instructions Recorded Confirmed Type clonazePAM 0.5 mg PO BID 11/14/18 05/07/24 History traZODone HCL [Desyrel] 100 mg PO HS 11/14/18 05/07/24 History Ibuprofen [Motrin] 800 mg PO Q8H PRN #30 tab 11/25/23 05/07/24 Rx "Goodsense" Allergy Tablet (24hr 1 dose PO DAILY 11/28/23 05/07/24 History Tab) Multivit-Min/Iron/Folic/Lutein 1 tab PO DAILY 11/28/23 05/07/24 History [Centrum Silver Women Tablet] HYDROcodone/APAP 5-325MG [[place] 1 tab PO Q6HR PRN 7 Days #28 tab 11/30/23 05/07/24 Rx 5-325] Alendronate Sodium [Fosamax] 70 mg PO WEEKLY 04/30/24 05/07/24 History Allergies Allergy/AdvReac Type Severity Reaction Status Date / Time codeine AdvReac Nausea & Verified 05/07/24 07:23 Vomiting Objective - Constitutional General appearance: Present: cooperative - EENT Eyes: Present: EOMI ENT: Present: hearing grossly normal - Neck Neck: Present: normal ROM - Respiratory Respiratory: bilateral: CTA - Cardiovascular Heart sounds: normal: S1, S2 - Integumentary Integumentary Comment(s): Ecchymosis of the periareolar area of the left breast extending to the lateral aspect of the breast, at biopsy site approximately 2 x 3 cm in size in the retroareolar region At the site of the tape there is some excoriation of the skin - Musculoskeletal Musculoskeletal Comment(s): uses a walker Assessment and Plan Plan: Impression: Patient status post left breast stereotactic core biopsy pathology benign Patient developed a hematoma at the site postprocedure which is resolving at this time Plan: Left breast mammogram in 6 months with examination at that time Patient will be seen again in 6 weeks to evaluate resolution of hematoma Patient to follow-up sooner any questions or concerns will follow mole left breast at her next visit CC: Dr. Cervantes
== END ==
LOC: WWCWWP 13:50
PROVIDERS: ATTEND Surgery
DX: R92.1 Mammographic calcification found on diagnostic imaging of breast (principal); N60.11 Diffuse cystic mastopathy of right breast; N60.12 Diffuse cystic mastopathy of left breast; N64.89 Other specified disorders of breast; Z98.890 Other specified postprocedural states; Z88.5 Allergy status to narcotic agent

== ENCOUNTER → 2024-05-19 | Outpatient (CLI) | payer MEDICARE ==
[2024-05-19 15:58] LABS: Basophils # (A) 0.05 X 10*3/uL (0.00-0.10); Basophils % (A) 0.8 %; Eosinophils # (A) 0.22 X 10*3/uL (0.04-0.35); Eosinophils % (A) 3.4 %; HCT 43.4 % (37.2-46.3); HGB 14.1 g/dL (12.0-15.0); Lymphocytes % (A) 32.6 %; MCH 30.1 pg (27.0-32.0); MCHC 32.5 g/dL (32.0-37.0); MCV 92.5 FL (80.0-97.0); Mean Platelet Volume 10.3 FL (9.5-12.2); Monocytes # (A) 0.45 X 10*3/uL (0.20-1.00); NRBC Per 100 WBC 0 X 10*3/uL (0.00-0.01); Neutrophils # (A) 3.61 X 10*3/uL (1.80-7.70); Neutrophils % (A) 55.9 %; Platelet Count 262 X 10*3/uL (140-440); RBC 4.69 X 10*6/uL (4.10-5.20); RDW 12.4 % (11.5-14.5); WBC 6.45 X 10*3/uL (4.50-10.00)
[2024-05-19 16:36] LABS: BUN/Creat Ratio 22.86 Ratio (12.00-20.00); Chol/HDL Ratio 2.91 Ratio; Glucose 146 mg/dL (70-110); LDL Cholesterol,Calculated 85.7 mg/dL (0.0-131.0); Magnesium 2.2 mg/dL (1.5-2.4)
[2024-05-19 16:37] LABS: ALT 14 U/L (8-44); AST 22 U/L (13-35); Albumin 4.4 g/dL (3.8-4.9); Albumin/Globulin Ratio 1.76 Ratio (1.60-3.17); Alkaline Phosphatase 84 U/L (41-126); Calcium 9.5 mg/dL (8.7-10.3); Carbon Dioxide 21.6 mmol/L (21.6-31.8); Chloride 105 mmol/L (96-109); Globulin 2.5 g/dL (1.6-3.3); Potassium 4.4 mmol/L (3.5-5.5); Sodium 141 mmol/L (135-145); Total Bilirubin 0.4 mg/dL (0.3-1.2); Total Protein 6.9 g/dL (6.2-8.2)
== END | disposition home or self-care (01) ==
LOC: LABWHC1 08:49
PROVIDERS: ATTEND Internal Medicine
DX: Z00.00 Encounter for general adult medical examination without abnormal findings (principal); M81.0 Age-related osteoporosis without current pathological fracture; G30.9 Alzheimer's disease, unspecified
CPT/HCPCS: 36415; 80053; 80061; 82306; 82607; 82746; 83036; 83735; 84443; 85025

== ENCOUNTER → 2024-06-04 | Outpatient (CLI) | payer MEDICARE ==
--- NOTE | 2024-07-08 11:42 | WWPN ---
[facility] - PROGRESS NOTE The patient underwent a stereotactic core biopsy on 05/06/2024. Her pathology was felt to be benign, concordant. The patient, however, states that she has persistent swelling in her breast with pain and discomfort. She did develop a hematoma after a core biopsy, however, this appears to be resolving. Additionally, she had a mole on her left breast for which she has some concern. EXAMINATION: There is no ecchymosis in the left breast at this time. The biopsy site is clean and dry. The patient does have some persistent fullness which is most likely related to a resolving hematoma. The patient was seen in conjunction with her . I have discussed with them that we could attempt to get an ultrasound with possible drainage if there is any fluid of concern with resolving hematoma. I have talked with the ultrasound technicians, however, at this time, they stated they are not doing breast ultrasounds. IMPRESSION: Resolving hematoma status post stereo biopsy, left breast. No evidence of any infection. PLAN: After discussion with the patient and her , she will be followed conservatively. She has an appointment for June 26, will be followed up at that time. Please note, states that they are good friends with Dr. Wheeler. MMODL / IJN: [id number] /
== END ==
LOC: WWCWWP 11:37
PROVIDERS: ATTEND Surgery

== ENCOUNTER → 2024-06-26 | Outpatient (CLI) | payer MEDICARE ==
[2024-06-26 09:34] VITALS: BP 159/116; RESP 18; TEMP 98.2
--- NOTE | 2024-06-26 09:59 | P.PN ---
Subjective Progress Note Date: 06/26/24 Principal diagnosis: swelling left breast Macy is status post a left breast stero biopsy on 05-14-24. This was benign concordant. She developed some swelling of this breast and is here for follow up. She was seen on 06-04-24 and at that time there was no echymosis at the site. The biopsy site was clean and dry. She did have a resolving hematoma. The discomfort has largely resolved. She states that at times there is a #2 level of discomfort which some days she does not even notice. She does have a mole on the anterior upper outer quadrant area of the left breast which we are watching. Examination: Lungs: Clear Heart: Regular rate and rhythm Left breast: No evidence of any infection or ecchymosis, there does appear to be a resolving hematoma which is smaller than on her prior visit Small mole upper outer quadrant area which appears to be stable and benign Plan: Left breast mammogram in 6 months with examination at that time Will continue to follow the mole if it changes we would be happy to remove it for her Patient will follow-up sooner any questions or concerns CC: Dr. Pederson Objective - Vital Signs Vital signs: Vital Signs Temp 98.2 F 06/26/24 09:29 Pulse Resp 18 06/26/24 09:29 BP 159/116 06/26/24 09:29 Pulse Ox 99 06/26/24 09:29 FiO2 Intake & Output 06/25/24 06/26/24 06/26/24 18:59 06:59 18:59 Weight 56.699 kg
== END ==
LOC: WWCWWP 08:50
PROVIDERS: ATTEND Surgery
DX: R92.8 Other abnormal and inconclusive findings on diagnostic imaging of breast (principal); N63.20 Unspecified lump in the left breast, unspecified quadrant; Z88.5 Allergy status to narcotic agent

== ENCOUNTER → 2025-01-21 | Outpatient (CLI) | payer MEDICARE ==
--- NOTE | 2025-01-21 14:31 | BD ---
EXAMINATION TYPE: Axial Bone Density DATE OF EXAM: 01/21/2025 CLINICAL HISTORY: 69 years old Female. ICD-10 CODE: M81.0 Osteoporosis , Additional History: Height: 59 Weight: 131.1 FRAX RISK QUESTIONS: Alcohol (3 or more units per day): no Family History (Parent hip fracture): no Glucocorticoids (More than 3mos): no (Ex: prednisone, prednisolone, methylprednisolone, dexamethasone, and hydrocortisone). History of Fracture in Adulthood: yes Secondary Osteoporosis: 1. Type 1 Diabetes: no 2. Hyperthyroidism: no 3. Menopause before 45: no 4. Malnutrition: no 5. Chronic liver disease: no Rheumatoid Arthritis: no Current Tobacco Use: no RISK FACTORS HISTORY OF: Spine Fracture: l-spine When: 2024 Surgery to Spine/Hip(right/left)/Wrist (right/left): no MEDICATIONS: Osteoporosis Medications: yes How Lon 1/2 years EXAM MEASUREMENTS: Bone mineral densitometry was performed using the [employer] System. Bone mineral density about the R hip (g/cm2): 0.722 Bone mineral density about the L hip (g/cm2): 0.712 T Score values are as follows: -----R Neck: -2.4 -----L Neck: -2.7 -----R Total: -2.3 -----L Total: -2.3 Z Score values are as follows: -----R Neck: -0.5 -----L Neck: -0.9 -----R Total: -0.6 -----L Total: -0.7 Bone mineral density has: decreased -5.7 % since study of: 10.10.2022 Bone mineral density about the R Wrist (g/cm2): 0.430 T Score values are as follows: -----Dist. R+U: -5.1 -----Prox. R+U: -3.0 -----Radius total: -4.0 Z Score values are as follows: -----Dist. R+U: -3.2 -----Prox. R+U: -1.1 -----Radius total: -2.1 Bone mineral density : baseline FRAX%s: The graph provided illustrates a 26.2% chance for a major osteoporotic fx and a 7.9% chance f or the hips probability for fx in 10 years time. IMPRESSION: Osteoporosis (T Score less than -2.5). There is increased fracture risk and therapy is usually indicated based on age. Re-Screen 1-2 years. NOTE: T-SCORE=SD OF THE YOUNG ADULT MEAN. [facility], , 01/21/2025 2:28 PM
== END | disposition home or self-care (01) ==
LOC: RADBDWWP 09:50
PROVIDERS: ATTEND Internal Medicine
DX: M81.0 Age-related osteoporosis without current pathological fracture (principal)
CPT/HCPCS: 77080

== ENCOUNTER 2025-02-01 04:54 | Emergency (ER) | payer MEDICARE ==
[2025-02-01 05:02] VITALS: RESP 17
--- NOTE | 2025-02-01 05:03 | ED ---
Lower Extremity Injury HPI - General Chief Complaint: Extremity Injury, Lower Stated Complaint: rt leg pain Time Seen by Provider: 02/01/25 05:02 Source: patient, RN notes reviewed, old records reviewed Mode of arrival: EMS Limitations: no limitations - History of Present Illness Initial Comments: This is a 69-year-old female to the ER for evaluation today. This patient notes today for severe right leg spasm which woke her up from sleep. Spasm was ongoing when EMS arrived at the house leg was cramped patient was able to move the right leg and it was twitching per EMS although symptoms are currently resolved here in the ER patient feels well MD Complaint: other (Significant muscle spasm resolved) -: hour(s) Injury: Foot: Right, Toes: Right Place: home Severity: severe Severity scale (1-10): 10 Associated Symptoms: tingling, unable to bear weight Treatments Prior to Arrival: other - Related Data Home Medications Medication Instructions Recorded Confirmed clonazePAM 0.5 mg PO BID 11/14/18 05/14/24 traZODone HCL [Desyrel] 100 mg PO HS 11/14/18 05/14/24 "Goodsense" Allergy Tablet (24hr 1 dose PO DAILY 11/28/23 05/14/24 Tab) Multivit-Min/Iron/Folic/Lutein 1 tab PO DAILY 11/28/23 05/14/24 [Centrum Silver Women Tablet] Alendronate Sodium [Fosamax] 70 mg PO WEEKLY 04/30/24 05/14/24 Previous Rx's Medication Instructions Recorded Ibuprofen [Motrin] 800 mg PO Q8H PRN #30 tab 11/25/23 HYDROcodone/APAP 5-325MG [[place] 1 tab PO Q6HR PRN 7 Days #28 tab 11/30/23 5-325] Allergies Allergy/AdvReac Type Severity Reaction Status Date / Time codeine AdvReac Nausea & Verified 02/01/25 05:02 Vomiting Review of Systems ROS Statement: Those systems with pertinent positive or pertinent negative responses have been documented in the HPI. ROS Other: All systems not noted in ROS Statement are negative. Past Medical History Past Medical History: Asthma Additional Past Medical History / Comment(s): HX OSTEOPOROSIS. Ataxia. Alzheimers dementia, early History of Any Multi-Drug Resistant Organisms: None Reported Past Surgical History: Section, Orthopedic Surgery Additional Past Surgical History / Comment(s): MICHELINE KNEES MENISCUS REPAIR, SINUS SX. Past Anesthesia/Blood Transfusion Reactions: No Reported Reaction Past Psychological History: Anxiety, Depression Smoking Status: Never smoker Past Alcohol Use History: None Reported Past Drug Use History: None Reported - Past Family History Father Family Medical History: Cancer Additional Family Medical History / Comment(s): THROAT, SKIN General Exam Limitations: no limitations General appearance: alert, in no apparent distress Head exam: Present: atraumatic, normocephalic, normal inspection Eye exam: Present: normal appearance, PERRL, EOMI. Absent: scleral icterus, conjunctival injection, periorbital swelling ENT exam: Present: normal exam, mucous membranes moist Neck exam: Present: normal inspection. Absent: tenderness, meningismus, lymphadenopathy Respiratory exam: Present: normal lung sounds bilaterally. Absent: respiratory distress, wheezes, rales, rhonchi, stridor Cardiovascular Exam: Present: regular rate, normal rhythm, normal heart sounds. Absent: systolic murmur, diastolic murmur, rubs, gallop, clicks GI/Abdominal exam: Present: soft, normal bowel sounds. Absent: distended, tenderness, guarding, rebound, rigid Extremities exam: Present: normal inspection, full ROM, normal capillary refill. Absent: tenderness, pedal edema, joint swelling, calf tenderness Back exam: Present: normal inspection Neurological exam: Present: alert, oriented X3, CN II-XII intact Psychiatric exam: Present: normal affect, normal mood Skin exam: Present: warm, dry, intact, normal color. Absent: rash Course Vital Signs 02/01/25 02/01/25 04:55 05:52 Temperature 97.5 F L 98.4 F Pulse Rate 98 89 Respiratory 17 17 Rate Blood Pressure 181/104 154/88 O2 Sat by Pulse 94 L 99 Oximetry - Reevaluation(s) Reevaluation #1: Medical records reviewed Reevaluation #2: Patient's symptoms of all resolved and remain resolved 02/13/25 18:47 Reevaluation #3: Patient informed of results questions answered Reevaluation #4: Was pt. sent in by a medical professional or institution (, PA, [employer]TAIN, urgent care, hospital, or fci...) When possible be specific @ -no Did you speak to anyone other than the patient for history (EMS, parent, family, police, friend...)? What history was obtained from this source @ -no Did you review nursing and triage notes (agree or disagree)? Why? @ -agree Are old charts reviewed (outside hosp., previous admission, EMS record, old EKG, old radiological studies, urgent care reports/EKG's, fci records)? Report findings @ -yes Differential Diagnosis (chest pain, altered mental status, abdominal pain women, abdominal pain men, vaginal bleeding, weakness, fever, dyspnea, syncope, headache, dizziness, GI bleed, back pain, seizure, CVA, palpatations, mental health, musculoskeletal)? @ -prior EKG interpreted by me (3pts min.). @ -no X-rays interpreted by me (1pt min.). @ -no CT interpreted by me (1pt min.). @ -no U/S interpreted by me (1pt. min.). @ -no What testing was considered but not performed or refused? (CT, X-rays, U/S, labs)? Why? @ -none What meds were considered but not given or refused? Why? @ -none Did you discuss the management of the patient with other professionals (professionals i.e. , PA, [employer], lab, RT, psych nurse, nursing home social worker, hoop riveting machine operator helper, teacher, business banking officer, therapeutic case manager)? Give summary @ -no Was smoking cessation discussed for >3mins.? @ -no Was critical care preformed (if so, how long)? @ -no Were there social determinants of health that impacted care today? How? (Homelessness, low income, unemployed, alcoholism, drug addiction, transportation, low edu. Level, literacy, decrease access to med. care, snf, rehab)? @ -none Was there de-escalation of care discussed even if they declined (Discuss DNR or withdrawal of care, Hospice)? DNR status @ -no What co-morbidities impacted this encounter? (DM, HTN, Smoking, COPD, CAD, Cancer, CVA, ARF, Chemo, Hep., AIDS, mental health diagnosis, sleep apnea, morbid obesity)? @ -none Was patient admitted / discharged? Hospital course, mention meds given and route, prescriptions, significant lab abnormalities, going to OR and other pertinent info. @ -68-year-old female for severe muscle spasm prior to ER evaluation. Symptoms resolved here in the ER patient was monitored without return of symptoms. Patient can be discharged home Undiagnosed new problem with uncertain prognosis? @ -no Drug Therapy requiring intensive monitoring for toxicity (Heparin, Nitro, Insulin, Cardizem)? @ -no Were any procedures done? @ -no Diagnosis/symptom? @ -Acute muscle spasm Acute, or Chronic, or Acute on Chronic? @ -Acute Uncomplicated (without systemic symptoms) or Complicated (systemic symptoms)? @ -Complicated Side effects of treatment? @ -no Exacerbation, Progression, or Severe Exacerbation? @ -exacerbation Poses a threat to life or bodily function? How? (Chest pain, [place], [place], pneumonia, PE, COPD, DKA, ARF, appy, cholecystitis, CVA, Diverticulitis, Homicidal, Suicidal, threat to staff... and all critical care pts) @ -yes extremes of age Disposition Clinical Impression: Muscle spasm Disposition: HOME SELF-CARE Condition: Good Instructions (If sedation given, give patient instructions): Muscle Spasm (ED) Is patient prescribed a controlled substance at d/c from ED?: No Referrals: Issac Pederson DO [Primary Care Provider] - 1-2 days Time of Disposition: 05:30
[2025-02-01] MEDS: POTASSIUM BICARBONATE/CIT AC 20 MEQ TABLET.EFF PO ONE (05:08)
[2025-02-01] MEDS: MAGNESIUM OXIDE 400 MG TAB PO STA (05:08)
[2025-02-01] MEDS: SODIUM CHLORIDE 0.9% 500 ML 500 ML IV ONE (05:09)
[2025-02-01 05:55] VITALS: BP 154/88; PULSE 89; TEMP 98.4
== END 2025-02-01 05:55 | disposition home or self-care (01) ==
LOC: EC 04:54
DX: M62.838 Other muscle spasm (principal); Z88.5 Allergy status to narcotic agent
CPT/HCPCS: 99284

== ENCOUNTER 2025-04-01 13:18 | Emergency (ER) | payer MEDICARE ==
[2025-04-01 13:42] VITALS: TEMP 98.1
--- NOTE | 2025-04-01 14:27 | ED ---
General Adult HPI - General Chief complaint: Urogenital Stated complaint: Urogenital Time Seen by Provider: 04/01/25 14:21 Source: patient, family Mode of arrival: ambulatory Limitations: no limitations - History of Present Illness Initial comments: The patient is a 69-year-old female who is otherwise healthy presents emergency room with complaints of urinary retention. Patient states that started at 2 AM this morning. Has no previous history of this. Patient states she is only able to get a small amount of urine out when she tries to go to the bathroom. She denies any hematuria. Denies any nausea vomiting, fever or flank pain. Denies any history of kidney stones or urinary tract infections. Denies any change in medications. Denies any lower back pains or recent falls or injuries. Denies any loss of bowel or bladder control. Denies any constipation. - Related Data Home Medications Medication Instructions Recorded Confirmed clonazePAM 0.5 mg PO BID 11/14/18 05/14/24 traZODone HCL [Desyrel] 100 mg PO HS 11/14/18 05/14/24 "Goodsense" Allergy Tablet (24hr 1 dose PO DAILY 11/28/23 05/14/24 Tab) Multivit-Min/Iron/Folic/Lutein 1 tab PO DAILY 11/28/23 05/14/24 [Centrum Silver Women Tablet] Alendronate Sodium [Fosamax] 70 mg PO WEEKLY 04/30/24 05/14/24 Previous Rx's Medication Instructions Recorded Ibuprofen [Motrin] 800 mg PO Q8H PRN #30 tab 11/25/23 HYDROcodone/APAP 5-325MG [[place] 1 tab PO Q6HR PRN 7 Days #28 tab 11/30/23 5-325] Cephalexin [Keflex] 500 mg PO Q6HR #40 cap 04/01/25 Allergies Allergy/AdvReac Type Severity Reaction Status Date / Time codeine AdvReac Nausea & Verified 04/01/25 13:37 Vomiting Review of Systems ROS Statement: Those systems with pertinent positive or pertinent negative responses have been documented in the HPI. ROS Other: All systems not noted in ROS Statement are negative. Constitutional: Reports: as per HPI Respiratory: Reports: as per HPI Cardiovascular: Reports: as per HPI Endocrine: Reports: as per HPI Gastrointestinal: Denies: abdominal pain, nausea, vomiting, diarrhea, constipation, hematemesis Genitourinary: Reports: dysuria, frequency, other (urinary retention). Denies: urgency, hematuria Musculoskeletal: Reports: as per HPI. Denies: back pain Neurological: Reports: as per HPI Past Medical History Past Medical History: Asthma Additional Past Medical History / Comment(s): HX OSTEOPOROSIS. fx back History of Any Multi-Drug Resistant Organisms: None Reported Past Surgical History: Section, Orthopedic Surgery Additional Past Surgical History / Comment(s): MICHELINE KNEES MENISCUS REPAIR, SINUS SX. Past Anesthesia/Blood Transfusion Reactions: No Reported Reaction Past Psychological History: Anxiety, Depression Smoking Status: Never smoker Past Alcohol Use History: None Reported Past Drug Use History: None Reported - Past Family History Father Family Medical History: Cancer Additional Family Medical History / Comment(s): THROAT, SKIN General Exam Limitations: no limitations General appearance: alert, in no apparent distress Head exam: Present: atraumatic Eye exam: Present: normal appearance ENT exam: Present: normal exam Neck exam: Present: normal inspection Respiratory exam: Present: normal lung sounds bilaterally Cardiovascular Exam: Present: tachycardia GI/Abdominal exam: Present: tenderness (mild tenderness with palpation, no rebound tenderness) External exam: Present: normal external exam Back exam: Present: normal inspection, full ROM. Absent: CVA tenderness (R), CVA tenderness (L) Neurological exam: Present: alert, altered, oriented X3 Psychiatric exam: Present: normal affect, normal mood Skin exam: Present: warm, dry Course Vital Signs 04/01/25 13:37 Temperature 98.1 F Pulse Rate 101 H Respiratory 17 Rate Blood Pressure 191/102 O2 Sat by Pulse 98 Oximetry - Reevaluation(s) Reevaluation #1: 04/01/25 1550 I discussed lab results with patient and family member at bedside. Patient has a urinary tract infection seen on the UA but other labs are unremarkable. Urine will be cultured. The patient was given dose of Rocephin in the emergency room. She will be discharged home with Keflex. I did discuss signs return to the emergency room including but not limited to worsening pain, blood in the urine, uncontrolled fevers vomiting, abnormal behavior or new concerning symptoms 04/01/25 16:37 Of note the patient only had about 20 cc of urine in the bladder on the bladder scan. 04/01/25 16:39 Medical Decision Making - Medical Decision Making Was pt. sent in by a medical professional or institution (DOMINIC Gasca, TRACTOR OPERATOR [employer]EVELING, urgent care, hospital, or fci...) When possible be specific @ -[No] Did you speak to anyone other than the patient for history (EMS, parent, family, police, friend...)? What history was obtained from this source @ -Family member at bedside Did you review nursing and triage notes (agree or disagree)? Why? @ -Yes triage nursing notes were reviewed Were old charts reviewed (outside hosp., previous admission, EMS record, old E KG, old radiological studies, urgent care reports/EKG's, fci records)? Report findings @ -[No old charts were reviewed] Differential Diagnosis (chest pain, altered mental status, abdominal pain women, abdominal pain men, vaginal bleeding, weakness, fever, dyspnea, syncope, headache, dizziness, GI bleed, back pain, seizure, CVA, palpatations, mental health, musculoskeletal)? @ -Urinary tract infection, urinary retention, constipation, kidney stone EKG interpreted by me (3pts min.). @ -[As above] X-rays interpreted by me (1pt min.). @ -[None done] CT interpreted by me (1pt min.). @ -[None done] U/S interpreted by me (1pt. min.). @ -[None done] What testing was considered but not performed or refused? (CT, X-rays, U/S, labs)? Why? @ -[None] What meds were considered but not given or refused? Why? @ -[None] Did you discuss the management of the patient with other professionals (professionals i.e. DOMINIC Gasca, TRACTOR OPERATOR [employer], lab, RT, psych nurse, professor of social work, pneumatic tool repairer, teacher, commissioned police officer, rifle case repairer)? Give summary @ -Discussed patient's symptoms workup and disposition with attending ED physician Dr. Mahoney today Was smoking cessation discussed for >3mins.? @ -[No] Was critical care preformed (if so, how long)? @ -[No] Were there social determinants of health that impacted care today? How? (Homelessness, low income, unemployed, alcoholism, drug addiction, transportation, low edu. Level, literacy, decrease access to med. care, halfway, rehab)? @ -[No] Was there de-escalation of care discussed even if they declined (Discuss DNR or withdrawal of care, Hospice)? DNR status @ -[No] What co-morbidities impacted this encounter? (DM, HTN, Smoking, COPD, CAD, Cancer, CVA, ARF, Chemo, Hep., AIDS, mental health diagnosis, sleep apnea, morbid obesity)? @ -[None] Was patient admitted / discharged? Hospital course, mention meds given and route, prescriptions, significant lab abnormalities, going to OR and other pertinent info. @ -Patient is stable and able to be discharged home at this time. She will be discharged with a prescription of Keflex to treat the urinary tract infection. She does understand signs return to the emergency room. Undiagnosed new problem with uncertain prognosis? @ -[No] Drug Therapy requiring intensive monitoring for toxicity (Heparin, Nitro, Insulin, Cardizem)? @ -[No] Were any procedures done? @ -[No] Diagnosis/symptom? @ -Urinary tract infection, cystitis, urinary retention Acute, or Chronic, or Acute on Chronic? @ -Acute Uncomplicated (without systemic symptoms) or Complicated (systemic symptoms)? @ -[default] Side effects of treatment? @ -[No] Exacerbation, Progression, or Severe Exacerbation? @ -[No] Poses a threat to life or bodily function? How? (Chest pain, [place], [place], pneumonia, PE, COPD, DKA, ARF, appy, cholecystitis, CVA, Diverticulitis, Homicidal, Suicidal, threat to staff... and all critical care pts) @ -[No] - Lab Data Result diagrams: 04/01/25 14:48 04/01/25 14:48 Lab Results 04/01/25 04/01/25 04/01/25 Range/Units 14:35 14:48 14:48 WBC 10.04 H (4.50-10.00) 10*3/uL RBC 4.80 (4.10-5.20) 10*6/uL Hgb 14.4 (12.0-15.0) g/dL Hct 42.2 (37.2-46.3) % MCV 87.9 (80.0-97.0) fL MCH 30.0 (27.0-32.0) pg MCHC 34.1 (32.0-37.0) g/dL Plt Count 211 (140-440) 10*3/uL MPV 10.3 (9.5-12.2) fL Immature Gran % (Auto) 0.3 % Neutrophils % 70.7 % Lymphocytes % 21.3 % Monocytes % 5.6 % Eosinophils % 1.7 % Basophils % 0.4 % Immature Gran # 0.03 (0.00-0.04) 10*3/uL Neutrophils # 7.10 (1.80-7.70) 10*3/uL Lymphocytes # 2.14 (0.90-5.00) 10*3/uL Monocytes # 0.56 (0.20-1.00) 10*3/uL Eosinophils # 0.17 (0.04-0.35) 10*3/uL Basophils # 0.04 (0.00-0.10) 10*3/uL Sodium 139 (137-145) mmol/L Potassium 4.1 (3.5-5.1) mmol/L Chloride 106 (98-107) mmol/L Carbon Dioxide 24 (22-30) mmol/L Anion Gap 9 mmol/L BUN 17 (7-17) mg/dL Creatinine 0.64 (0.52-1.04) mg/dL Est GFR (CKD-EPI)AfAm >90 (>60 ml/min/1.73 sqM) Est GFR (CKD-EPI)NonAf >90 (>60 ml/min/1.73 sqM) Glucose 109 H (74-99) mg/dL Calcium 9.9 (8.4-10.2) mg/dL Total Bilirubin 0.3 (0.2-1.3) mg/dL AST 34 (14-36) U/L ALT 24 (4-34) U/L Alkaline Phosphatase 104 (38-126) U/L Total Protein 7.5 (6.3-8.2) g/dL Albumin 4.6 (3.5-5.0) g/dL Urine Color Colorless Urine Appearance Clear (Clear) Urine pH 6.0 (5.0-8.0) Ur Specific [place] 1.014 (1.001-1.035) Urine Protein Negative (Negative) Urine Glucose (UA) Negative (Negative) Urine Ketones Negative (Negative) Urine Blood Moderate H (Negative) Urine Nitrite Positive H (Negative) Urine Bilirubin Negative (Negative) Urine Urobilinogen <2.0 (<2.0) mg/dL Ur Leukocyte Esterase Large H (Negative) Urine RBC 19 H (0-5) /hpf Urine WBC 141 H (0-5) /hpf Urine WBC Clumps Occasional H (None) /hpf Urine Bacteria Occasional H (None) /hpf Disposition Clinical Impression: Cystitis, Urinary tract infection Disposition: HOME SELF-CARE Condition: Good Instructions (If sedation given, give patient instructions): Cephalexin (By mouth), Urinary Tract Infection in Women (ED) Is patient prescribed a controlled substance at d/c from ED?: No When asked, does pt state using other controlled substances?: No If prescribed controlled substance>3 days was MAPS reviewed?: No Referrals: Issac Pederson DO [Primary Care Provider] - 1-2 days Juan Freitas MD [STAFF PHYSICIAN] - 1-2 days Time of Disposition: 16:32
[2025-04-01 14:58] LABS: Basophils # (A) 0.04 10*3/uL (0.00-0.10); Basophils % (A) 0.4 %; Eosinophils # (A) 0.17 10*3/uL (0.04-0.35); Eosinophils % (A) 1.7 %; HCT 42.2 % (37.2-46.3); HGB 14.4 g/dL (12.0-15.0); Lymphocytes # (A) 2.14 10*3/uL (0.90-5.00); Lymphocytes % (A) 21.3 %; MCHC 34.1 g/dL (32.0-37.0); MCV 87.9 fL (80.0-97.0); Mean Platelet Volume 10.3 fL (9.5-12.2); Monocytes # (A) 0.56 10*3/uL (0.20-1.00); Monocytes % (A) 5.6 %; Neutrophils % (A) 70.7 %; Platelet Count 211 10*3/uL (140-440); WBC 10.04 10*3/uL (4.50-10.00)
[2025-04-01 15:07] LABS: Appearance,Urine Clear (Clear); Bacteria,Urine Occasional /hpf; Bilirubin,Urine Negative (Negative); Blood,Urine Moderate (Negative); Color,Urine Colorless; Glucose,Urine (UA) Negative (Negative); Ketones,Urine Negative (Negative); Leukocyte Esterase,Urine Large (Negative); Nitrite,Urine Positive (Negative); Protein,Urine Negative (Negative); RBC,Urine 19 /hpf (0-5); Specific Gravity,Urine 1.014 (1.001-1.035); Urobilinogen,Urine <2.0 mg/dL (<2.0); WBC,Urine 141 /hpf (0-5)
[2025-04-01 15:18] LABS: ALT 24 U/L (4-34); AST 34 U/L (14-36); African American GFR (CKD) >90 (>60 ml/min/1.73 sqM); Albumin 4.6 g/dL (3.5-5.0); Alkaline Phosphatase 104 U/L (38-126); Anion Gap 9 mmol/L; Blood Urea Nitrogen 17 mg/dL (7-17); Calcium 9.9 mg/dL (8.4-10.2); Carbon Dioxide 24 mmol/L (22-30); Chloride 106 mmol/L (98-107); Glucose 109 mg/dL (74-99); Non-African American GFR(CKD) >90 (>60 ml/min/1.73 sqM); Potassium 4.1 mmol/L (3.5-5.1); Sodium 139 mmol/L (137-145); Total Bilirubin 0.3 mg/dL (0.2-1.3); Total Protein 7.5 g/dL (6.3-8.2)
[2025-04-01] MEDS: cefTRIAXone IN SWFI 1,000 MG/10 ML SYRINGE IVP STA (16:21)
[2025-04-01 17:36] VITALS: BP 166/99; PULSE 74; RESP 18
== END 2025-04-01 16:50 | disposition home or self-care (01) ==
LOC: EC 13:18
DX: N30.90 Cystitis, unspecified without hematuria (principal); Z88.5 Allergy status to narcotic agent
CPT/HCPCS: 51798; 36415; 80053; 85025; 81001; 87086; 99284; 96374; J0696

== ENCOUNTER 2025-04-17 05:30 | Emergency (ER) | payer MEDICARE ==
[2025-04-17 05:37] VITALS: RESP 18
--- NOTE | 2025-04-17 06:17 | ED ---
Female Urogenital HPI - General Chief complaint: Urogenital Stated complaint: UTI Time Seen by Provider: 04/17/25 06:17 Source: patient, family (), RN notes reviewed, old records reviewed Mode of arrival: ambulatory Limitations: no limitations - History of Present Illness Initial comments: 69-year-old female presented the ER for evaluation of lower abdominal pressure. Patient states a couple weeks ago she was treated for UTI with antibiotics. Patient followed up with PCP and ensure resolution of this. She states this morning around 4 AM she attempted to get up to urinate in the middle of the night and had very little urine output. Patient also reports severe lower abdominal discomfort. Patient states she feels like she is not complete emptying her bladder and feels as there is "blockage". Patient denies a history of urinary retention or Verdin catheter use. She denies any abnormal vaginal bleeding or discharge. She denies any fevers, chills, nausea, vomiting, constipation/diarrhea, back or flank pain. Patient has not taken anything for symptoms at this time. - Related Data Home Medications Medication Instructions Recorded Confirmed clonazePAM 0.5 mg PO BID 11/14/18 05/14/24 traZODone HCL [Desyrel] 100 mg PO HS 11/14/18 05/14/24 "Goodsense" Allergy Tablet (24hr 1 dose PO DAILY 11/28/23 05/14/24 Tab) Multivit-Min/Iron/Folic/Lutein 1 tab PO DAILY 11/28/23 05/14/24 [Centrum Silver Women Tablet] Alendronate Sodium [Fosamax] 70 mg PO WEEKLY 04/30/24 05/14/24 Previous Rx's Medication Instructions Recorded Ibuprofen [Motrin] 800 mg PO Q8H PRN #30 tab 11/25/23 HYDROcodone/APAP 5-325MG [[place] 1 tab PO Q6HR PRN 7 Days #28 tab 11/30/23 5-325] Cephalexin [Keflex] 500 mg PO Q6HR #40 cap 04/01/25 Sulfamethox-Tmp 800-160Mg [Bactrim 1 each PO Q12HR #20 tab 04/17/25 Ds] Allergies Allergy/AdvReac Type Severity Reaction Status Date / Time codeine AdvReac Nausea & Verified 04/17/25 05:37 Vomiting Review of Systems ROS Statement: Those systems with pertinent positive or pertinent negative responses have been documented in the HPI. ROS Other: All systems not noted in ROS Statement are negative. Past Medical History Past Medical History: Asthma Additional Past Medical History / Comment(s): HX OSTEOPOROSIS. fx back History of Any Multi-Drug Resistant Organisms: CRE, Other MDRO Date of last positivie culture/infection: 04/01/25-Other MDRO MDRO Source:: Other MDRO-urine Past Surgical History: Section, Orthopedic Surgery Additional Past Surgical History / Comment(s): MICHELINE KNEES MENISCUS REPAIR, SINUS SX. Past Anesthesia/Blood Transfusion Reactions: No Reported Reaction Past Psychological History: Anxiety, Depression Smoking Status: Never smoker Past Alcohol Use History: None Reported Past Drug Use History: None Reported - Past Family History Father Family Medical History: Cancer Additional Family Medical History / Comment(s): THROAT, SKIN General Exam Limitations: no limitations General appearance: alert, in no apparent distress Respiratory exam: Present: normal lung sounds bilaterally. Absent: respiratory distress, wheezes, rales, rhonchi, stridor Cardiovascular Exam: Present: regular rate, normal rhythm, normal heart sounds. Absent: systolic murmur, diastolic murmur, rubs, gallop, clicks GI/Abdominal exam: Present: soft, tenderness (Lower abdomen), normal bowel sounds Neurological exam: Present: alert, oriented X3, CN II-XII intact Skin exam: Present: warm, dry, intact, normal color. Absent: rash Course Vital Signs 04/17/25 04/17/25 05:34 08:40 Temperature 97.5 F L 97.9 F Pulse Rate 106 H 83 Respiratory 18 18 Rate Blood Pressure 177/91 157/87 O2 Sat by Pulse 96 96 Oximetry Medical Decision Making - Medical Decision Making Was pt. sent in by a medical professional or institution (, PA, MANAGER OF [employer]IRES SALES, urgent care, hospital, or snf...) When possible be specific @ -No Did you speak to anyone other than the patient for history (EMS, parent, family, police, friend...)? What history was obtained from this source @ -, at bedside, aiding in HPI and past medical history. Did you review nursing and triage notes (agree or disagree)? Why? @ -I reviewed and agree with nursing and triage notes Were old charts reviewed (outside hosp., previous admission, EMS record, old EKG, old radiological studies, urgent care reports/EKG's, snf records)? Report findings @ -Patient evaluated here at 04-01-2025 for urinary retention. Patient diagnosed with UTI and discharged on Keflex after receiving IV Rocephin. Urine culture sensitivity report reviewed from 04-01-2025 ER visit. Differential Diagnosis (chest pain, altered mental status, abdominal pain women, abdominal pain men, vaginal bleeding, weakness, fever, dyspnea, syncope, hea dache, dizziness, GI bleed, back pain, seizure, CVA, palpatations, mental health, musculoskeletal)? @ -UTI, urinary retention, nephrolithiasis, hematuria, [place]... This list is not meant to be Eliquis EKG interpreted by me (3pts min.). @ -None done X-rays interpreted by me (1pt min.). @ -None done CT interpreted by me (1pt min.). @ -CT abdomen pelvis showing no acute intra-abdominal process. Right nonobstructing renal calculi. Small hiatal hernia. Small left fat-containing inguinal hernia. U/S interpreted by me (1pt. min.). @ -None done What testing was considered but not performed or refused? (CT, X-rays, U/S, labs)? Why? @ -None What meds were considered but not given or refused? Why? @ -None Did you discuss the management of the patient with other professionals (professionals i.e. , PA, MANAGER OF [employer]IRES SALES, lab, RT, psych nurse, hospice social worker, sidewalk repairer, teacher, inshore undersea warfare officer, showcase maker)? Give summary @ -No Was smoking cessation discussed for >3mins.? @ -No Was critical care preformed (if so, how long)? @ -No Were there social determinants of health that impacted care today? How? (Homelessness, low income, unemployed, alcoholism, drug addiction, transportation, low edu. Level, literacy, decrease access to med. care, long term, rehab)? @ -No Was there de-escalation of care discussed even if they declined (Discuss DNR or withdrawal of care, Hospice)? DNR status @ -No What co-morbidities impacted this encounter? (DM, HTN, Smoking, COPD, CAD, Cancer, CVA, ARF, Chemo, Hep., AIDS, mental health diagnosis, sleep apnea, morbid obesity)? @ -Advanced age Was patient admitted / discharged? Hospital course, mention meds given and route, prescriptions, significant lab abnormalities, going to OR and other pertinent info. @ -Discharge. 69-year-old female presented the ER for evaluation of lower abdominal pressure. Upon arrival, patient mildly tachycardic at 106 bpm, this did resolve. Vitals otherwise stable. Patient in no signs of distress nontoxic-appearing. Abdominal exam remarkable for lower abdominal tenderness to palpation with normal bowel sounds. No rebound or guarding. Laboratory studies along with bladder scan and UA will be obtained. Postvoid bladder scan with 114ml retained urine. Laboratory studies obtained unremarkable. Urinalysis concerning of infection with 144 WBCs, 11 RBCs and large leukocyte esterases. Urine will be sent for culture. Given reoccurring UTIs, CT abdomen pelvis was obtained and negative for acute intra-abdominal process. There are nonobstructing right renal calculi. Upon reevaluation, patient resting comfortably on stretcher no signs of acute distress. Results discussed with patient, all questions answered. Patient received 1 g IV Rocephin prior to discharge and prescribed Bactrim. Strict return parameters discussed. I advised patient to follow-up closely with PCP to ensure resolution of UTI. I also recommended following up with urology, referral given, for further evaluation of recurrent UTIs. Patient discharged in stable condition. Patient verbally expressed understanding and agreement with care plan. Case discussed with ED attending, . Undiagnosed new problem with uncertain prognosis? @ -No Drug Therapy requiring intensive monitoring for toxicity (Heparin, Nitro, Insulin, Cardizem)? @ -No Were any procedures done? @ -No Diagnosis/symptom? @ -UTI Acute, or Chronic, or Acute on Chronic? @ -Acute Uncomplicated (without systemic symptoms) or Complicated (systemic symptoms)? @ -Uncomplicated Side effects of treatment? @ -No Exacerbation, Progression, or Severe Exacerbation? @ -No Poses a threat to life or bodily function? How? (Chest pain, [place], [place], pneumonia, PE, COPD, DKA, ARF, appy, cholecystitis, CVA, Diverticulitis, Homicidal, Suicidal, threat to staff... and all critical care pts) @ -No - Lab Data Result diagrams: 04/17/25 06:42 04/17/25 06:42 Lab Results 0604/17/25 04/17/25 Range/Units 05:53 06:42 06:42 WBC 5.74 (4.50-10.00) 10*3/uL RBC 5.08 (4.10-5.20) 10*6/uL Hgb 14.9 (12.0-15.0) g/dL Hct 45.0 (37.2-46.3) % MCV 88.6 (80.0-97.0) fL MCH 29.3 (27.0-32.0) pg MCHC 33.1 (32.0-37.0) g/dL Plt Count 209 (140-440) 10*3/uL MPV 10.2 (9.5-12.2) fL Immature Gran % (Auto) 0.3 % Neutrophils % 63.5 % Lymphocytes % 27.2 % Monocytes % 6.4 % Eosinophils % 2.1 % Basophils % 0.5 % Immature Gran # 0.02 (0.00-0.04) 10*3/uL Neutrophils # 3.64 (1.80-7.70) 10*3/uL Lymphocytes # 1.56 (0.90-5.00) 10*3/uL Monocytes # 0.37 (0.20-1.00) 10*3/uL Eosinophils # 0.12 (0.04-0.35) 10*3/uL Basophils # 0.03 (0.00-0.10) 10*3/uL Sodium 137 (137-145) mmol/L Potassium 4.2 (3.5-5.1) mmol/L Chloride 104 (98-107) mmol/L Carbon Dioxide 23 (22-30) mmol/L Anion Gap 10 mmol/L BUN 17 (7-17) mg/dL Creatinine 0.56 (0.52-1.04) mg/dL Est GFR (CKD-EPI)AfAm >90 (>60 ml/min/1.73 sqM) Est GFR (CKD-EPI)NonAf >90 (>60 ml/min/1.73 sqM) Glucose 126 H (74-99) mg/dL Calcium 9.7 (8.4-10.2) mg/dL Total Bilirubin 0.4 (0.2-1.3) mg/dL AST 26 (14-36) U/L ALT 20 (4-34) U/L Alkaline Phosphatase 105 (38-126) U/L Total Protein 7.3 (6.3-8.2) g/dL Albumin 4.5 (3.5-5.0) g/dL Urine Color Colorless Urine Appearance Clear (Clear) Urine pH 5.5 (5.0-8.0) Ur Specific [place] 1.024 (1.001-1.035) Urine Protein Negative (Negative) Urine Glucose (UA) Negative (Negative) Urine Ketones Negative (Negative) Urine Blood Small H (Negative) Urine Nitrite Negative (Negative) Urine Bilirubin Negative (Negative) Urine Urobilinogen <2.0 (<2.0) mg/dL Ur Leukocyte Esterase Large H (Negative) Urine RBC 11 H (0-5) /hpf Urine WBC 144 H (0-5) /hpf Urine Mucus Rare H (None) /hpf Urine Yeast (Budding) Few H (None) /hpf - Radiology Data Radiology results: report reviewed, image reviewed Disposition Clinical Impression: Urinary tract infection Disposition: HOME SELF-CARE Condition: Stable Instructions (If sedation given, give patient instructions): Urinary Tract Infection in Women (ED) Additional Instructions: Follow-up with urology. Take Bactrim as prescribed. Return to the ER for any new or worsening concerns Prescriptions: Sulfamethox-Tmp 800-160Mg [Bactrim Ds] 1 each PO Q12HR #20 tab Is patient prescribed a controlled substance at d/c from ED?: No Referrals: Issac Pederson DO [Primary Care Provider] - 1-2 days Juan Freitas MD [STAFF PHYSICIAN] - 1-2 days Time of Disposition: 08:11
[2025-04-17 06:35] LABS: Appearance,Urine Clear (Clear); Bilirubin,Urine Negative (Negative); Blood,Urine Small (Negative); Budding Yeast,Urine Few /hpf; Color,Urine Colorless; Glucose,Urine (UA) Negative (Negative); Ketones,Urine Negative (Negative); Leukocyte Esterase,Urine Large (Negative); Mucus,Urine Rare /hpf; Nitrite,Urine Negative (Negative); PH, Urine 5.5 (5.0-8.0); Protein,Urine Negative (Negative); RBC,Urine 11 /hpf (0-5); Specific Gravity,Urine 1.024 (1.001-1.035); Urobilinogen,Urine <2.0 mg/dL (<2.0); WBC,Urine 144 /hpf (0-5)
[2025-04-17 06:58] LABS: Basophils # (A) 0.03 10*3/uL (0.00-0.10); Basophils % (A) 0.5 %; Eosinophils # (A) 0.12 10*3/uL (0.04-0.35); Eosinophils % (A) 2.1 %; HGB 14.9 g/dL (12.0-15.0); Lymphocytes # (A) 1.56 10*3/uL (0.90-5.00); Lymphocytes % (A) 27.2 %; MCH 29.3 pg (27.0-32.0); MCHC 33.1 g/dL (32.0-37.0); MCV 88.6 fL (80.0-97.0); Mean Platelet Volume 10.2 fL (9.5-12.2); Monocytes # (A) 0.37 10*3/uL (0.20-1.00); Monocytes % (A) 6.4 %; Neutrophils # (A) 3.64 10*3/uL (1.80-7.70); Neutrophils % (A) 63.5 %; Platelet Count 209 10*3/uL (140-440); RBC 5.08 10*6/uL (4.10-5.20); RDW 12.2 % (11.5-14.5); WBC 5.74 10*3/uL (4.50-10.00)
[2025-04-17 07:11] LABS: ALT 20 U/L (4-34); AST 26 U/L (14-36); African American GFR (CKD) >90 (>60 ml/min/1.73 sqM); Albumin 4.5 g/dL (3.5-5.0); Alkaline Phosphatase 105 U/L (38-126); Anion Gap 10 mmol/L; Blood Urea Nitrogen 17 mg/dL (7-17); Calcium 9.7 mg/dL (8.4-10.2); Carbon Dioxide 23 mmol/L (22-30); Chloride 104 mmol/L (98-107); Glucose 126 mg/dL (74-99); Non-African American GFR(CKD) >90 (>60 ml/min/1.73 sqM); Potassium 4.2 mmol/L (3.5-5.1); Sodium 137 mmol/L (137-145); Total Bilirubin 0.4 mg/dL (0.2-1.3); Total Protein 7.3 g/dL (6.3-8.2)
--- NOTE | 2025-04-17 07:59 | CT ---
EXAMINATION TYPE: CT abdomen pelvis wo con DATE OF EXAM: 04/17/2025 7:46 AM COMPARISON: 11/28/2023 CLINICAL INDICATION: Female, 69 years old with history of reoccurent uti; low abd pain/uti TECHNIQUE: Axial CT abdomen pelvis wo con;Sagittal and coronal reformats were created on a separate workstation. Contrast used: mL of , (none if empty) Oral contrast used: without Oral Contrast (none if empty) CT DLP: 392.1 mGycm, Automated exposure control for dose reduction was used. FINDINGS: LOWER CHEST: Unremarkable ABDOMEN LIVER: Unremarkable GALLBLADDER AND BILE DUCTS: Unremarkable. PANCREAS: Unremarkable. SPLEEN: Unremarkable. ADRENAL GLANDS: Unremarkable. KIDNEYS AND URETERS: Nonobstructing right 5 mm calculus. No evidence of hydronephrosis or obstructing renal calculus. The ureters are unremarkable. PELVIS BLADDER: No evidence for wall thickening or mass given limitations of exam. REPRODUCTIVE: Unremarkable. ABDOMEN & PELVIS STOMACH AND BOWEL: No evidence of bowel obstruction. Small hiatal hernia. Visualized and may be surgically absent PERITONEUM/RETROPERITONEUM: No evidence of pneumoperitoneum or free fluid. VASCULATURE: No evidence of aortic aneurysm. MUSCULOSKELETAL: No acute osseous abnormalities. Moderate disc degeneration changes are present throu ghout the thoracolumbar spine. Compression deformity at T12 with near complete height loss. LYMPH NODES: No gross evidence for lymphadenopathy. SOFT TISSUE/ABDOMINAL WALL: Fat-containing left inguinal hernia. IMPRESSION: 1. No evidence for acute abdominal process. 2. Right nonobstructing renal calculi. 3. Small hiatal hernia. 4. Small left fat-containing inguinal hernia. [facility], , 04/17/2025 7:57 AM
[2025-04-17] MEDS: cefTRIAXone IN SWFI 1,000 MG/10 ML SYRINGE IVP STA (08:30)
[2025-04-17 08:41] VITALS: BP 157/87; PULSE 83; TEMP 97.9
== END 2025-04-17 08:43 | disposition home or self-care (01) ==
LOC: EC 05:30
DX: N39.0 Urinary tract infection, site not specified (principal); Z88.5 Allergy status to narcotic agent
CPT/HCPCS: 51798; 36415; 80053; 85025; 81001; 74176; 99284; 96374; J0696

== ENCOUNTER 2025-04-19 07:35 | Emergency (ER) | payer MEDICARE ==
--- NOTE | 2025-04-19 08:10 | ED ---
General Adult HPI - General Chief complaint: Urogenital Stated complaint: Urogenital/Back Pain Time Seen by Provider: 04/19/25 07:46 Source: patient Mode of arrival: ambulatory Limitations: no limitations - History of Present Illness Initial comments: Dictation was produced using [employer] dictation software. please excuse any grammatical, word or spelling errors. Chief Complaint: 69-year-old female back pain History of Present Illness: Patient 69-year-old female recently diagnosed with UTI. She is evaluated couple days ago for kidney stone. She was not found to have any nonobstructive kidney stones or was found to have urinary tract infection was given antibiotics. Last night she started having mid lower back pain. States that it is constant. Denies any nausea vomiting. Pain is nonradiating. The ROS documented in this emergency department record has been reviewed and confirmed by me. Those systems with pertinent positive or negative responses have been documented in the HPI. All other systems are other negative and/or noncontributory. - Related Data Home Medications Medication Instructions Recorded Confirmed clonazePAM 0.5 mg PO BID 11/14/18 05/14/24 traZODone HCL [Desyrel] 100 mg PO HS 11/14/18 05/14/24 "Goodsense" Allergy Tablet (24hr 1 dose PO DAILY 11/28/23 05/14/24 Tab) Multivit-Min/Iron/Folic/Lutein 1 tab PO DAILY 11/28/23 05/14/24 [Centrum Silver Women Tablet] Alendronate Sodium [Fosamax] 70 mg PO WEEKLY 04/30/24 05/14/24 Previous Rx's Medication Instructions Recorded Ibuprofen [Motrin] 800 mg PO Q8H PRN #30 tab 11/25/23 HYDROcodone/APAP 5-325MG [[place] 1 tab PO Q6HR PRN 7 Days #28 tab 11/30/23 5-325] Cephalexin [Keflex] 500 mg PO Q6HR #40 cap 04/01/25 Sulfamethox-Tmp 800-160Mg [Bactrim 1 each PO Q12HR #20 tab 04/17/25 Ds] Allergies Allergy/AdvReac Type Severity Reaction Status Date / Time codeine AdvReac Nausea & Verified 04/19/25 07:46 Vomiting Review of Systems ROS Statement: Those systems with pertinent positive or pertinent negative responses have been documented in the HPI. ROS Other: All systems not noted in ROS Statement are negative. Past Medical History Past Medical History: Asthma Additional Past Medical History / Comment(s): HX OSTEOPOROSIS. fx back History of Any Multi-Drug Resistant Organisms: CRE, Other MDRO Date of last positivie culture/infection: 04/01/25-Other MDRO MDRO Source:: Other MDRO-urine Past Surgical History: Section, Orthopedic Surgery Additional Past Surgical History / Comment(s): MICHELINE KNEES MENISCUS REPAIR, SINUS SX. Past Anesthesia/Blood Transfusion Reactions: No Reported Reaction Past Psychological History: Anxiety, Depression Smoking Status: Never smoker Past Alcohol Use History: None Reported Past Drug Use History: None Reported - Past Family History Father Family Medical History: Cancer Additional Family Medical History / Comment(s): THROAT, SKIN General Exam - General Exam Comments Initial Comments: PHYSICAL EXAM: General Impression: Alert and oriented x3, not in acute distress HEENT: Normocephalic atraumatic, extra-ocular movements intact, pupils equal and reactive to light bilaterally, mucous membranes moist. Cardiovascular: Heart regular rate and rhythm Chest: Able to complete full sentences, no retractions, no tachypnea Abdomen: abdomen soft, non-tender, non-distended, no organomegaly Musculoskeletal: Pulses present and equal in all extremities, no peripheral edema Motor: no focal deficits noted Neurological: CN II-XII grossly intact, no focal motor or sensory deficits noted Skin: Intact with no visualized rashes Psych: Normal affect and mood Limitations: no limitations Course Vital Signs 04/19/25 07:42 Temperature 97.8 F Pulse Rate 92 Respiratory 18 Rate Blood Pressure 150/86 O2 Sat by Pulse 98 Oximetry Medical Decision Making - Medical Decision Making Was pt. sent in by a medical professional or institution (, PA, FARM LOAN INSPECTOR, urgent care, hospital, or care home...) When possible be specific @ -No Did you speak to anyone other than the patient for history (EMS, parent, family, police, friend...)? What history was obtained from this source @ -No Did you review nursing and triage notes (agree or disagree)? Why? @ -I reviewed and agree with nursing and triage notes Were old charts reviewed (outside hosp., previous admission, EMS record, old EKG, old radiological studies, urgent care reports/EKG's, care home records)? Report findings @ -No old charts were reviewed Differential Diagnosis (chest pain, altered mental status, abdominal pain women, abdominal pain men, vaginal bleeding, musculoskeletal, weakness, fever, dyspnea, syncope, headache, dizziness, GI bleed, back pain, seizure, CVA, palpatations, mental health)? @ -Differential Back Pain: Strain, zoster, cauda equina syndrome, epidural abscess, vertebral osteomyelitis, discitis, fracture, subluxation, disc herniation, DJD, spinal stenosis, dissection, AAA, pancreatitis, peptic ulcer disease, pyelonephritis, kidney stone, this is not meant to be an all-inclusive list. EKG interpreted by me (3pts min.). @ -None done X-rays interpreted by me (1pt min.). @ -None done CT interpreted by me (1pt min.). @ -None done U/S interpreted by me (1pt. min.). @ -Ultrasound shows no hydronephrosis What testing was considered but not performed or refused? (CT, X-rays, U/S, labs)? Why? @ -None What meds were considered but not given or refused? Why? @ -None Was smoking cessation discussed for >3mins.? @ -No Were there social determinants of health that impacted care today? How? (Homelessness, low income, unemployed, alcoholism, drug addiction, transportation, low edu. Level, literacy, decrease access to med. care, retirement, rehab)? @ -No Was there de-escalation of care discussed even if they declined (Discuss DNR or withdrawal of care, Hospice)? DNR status @ -No What co-morbidities impacted this encounter? (DM, HTN, Smoking, COPD, CAD, Cancer, CVA, ARF, Chemo, Hep., AIDS, mental health diagnosis, sleep apnea, morbid obesity)? @ -None Was patient admitted / discharged? Hospital course, mention meds given and route, prescriptions, significant lab abnormalities, going to OR and other pertinent info. @ -69-year-old female with back pain. Currently being treated for UTI. Vital signs stable. Patient has midline lower back pain with history of back surgery. Laboratory evaluation is unremarkable. Urinalysis clean. Ultrasound shows no acute processes. Patient be discharged clinical presentation consistent with back strain. States that she has been raking her yard aggressively to try to clear some weeds. Patient told to rest follow-up with primary care doctor. Did you discuss the management of the patient with other professionals (professionals i.e. , PA, FARM LOAN INSPECTOR, lab, RT, psych nurse, social welfare research worker, rebar fabricator, teacher, chief privacy officer, ed case manager)? Give summary @ -No Was critical care preformed (if so, how long)? @ -No Undiagnosed new problem with uncertain prognosis? @ -No Drug Therapy requiring intensive monitoring for toxicity (Heparin, Nitro, Insulin, Cardizem)? @ -No Were any procedures done? @ -No Diagnosis/symptom? Acute, or Chronic, or Acute on Chronic? Uncomplicated (without systemic symptoms) or Complicated (systemic symptoms)? @ -Back strain Side effects of treatment? @ -No Exacerbation, Progression, or Severe Exacerbation? @ -No Poses a threat to life or bodily function? How? (Chest pain, [place], [place], pneumonia, PE, COPD, DKA, ARF, appy, cholecystitis, CVA, Diverticulitis, Homicidal, Suicidal, threat to staff... and all critical care pts) @ -No - Lab Data Result diagrams: 04/19/25 08:20 04/19/25 08:20 Lab Results 04/19/25 04/19/25 04/19/25 Range/Units 08:16 08:20 08:20 WBC 6.13 (4.50-10.00) 10*3/uL RBC 4.92 (4.10-5.20) 10*6/uL Hgb 14.5 (12.0-15.0) g/dL Hct 43.8 (37.2-46.3) % MCV 89.0 (80.0-97.0) fL MCH 29.5 (27.0-32.0) pg MCHC 33.1 (32.0-37.0) g/dL Plt Count 212 (140-440) 10*3/uL MPV 10.2 (9.5-12.2) fL Immature Gran % (Auto) 0.3 % Neutrophils % 62.2 % Lymphocytes % 26.9 % Monocytes % 7.8 % Eosinophils % 2.3 % Basophils % 0.5 % Immature Gran # 0.02 (0.00-0.04) 10*3/uL Neutrophils # 3.81 (1.80-7.70) 10*3/uL Lymphocytes # 1.65 (0.90-5.00) 10*3/uL Monocytes # 0.48 (0.20-1.00) 10*3/uL Eosinophils # 0.14 (0.04-0.35) 10*3/uL Basophils # 0.03 (0.00-0.10) 10*3/uL Sodium 139 (137-145) mmol/L Potassium 4.7 (3.5-5.1) mmol/L Chloride 108 H (98-107) mmol/L Carbon Dioxide 22 (22-30) mmol/L Anion Gap 9 mmol/L BUN 16 (7-17) mg/dL Creatinine 0.75 (0.52-1.04) mg/dL Est GFR (CKD-EPI)AfAm >90 (>60 ml/min/1.73 sqM) Est GFR (CKD-EPI)NonAf 81 (>60 ml/min/1.73 sqM) Glucose 111 H (74-99) mg/dL Calcium 10.2 (8.4-10.2) mg/dL Urine Color Colorless Urine Appearance Clear (Clear) Urine pH 6.5 (5.0-8.0) Ur Specific [place] 1.007 (1.001-1.035) Urine Protein Negative (Negative) Urine Glucose (UA) Negative (Negative) Urine Ketones Negative (Negative) Urine Blood Negative (Negative) Urine Nitrite Negative (Negative) Urine Bilirubin Negative (Negative) Urine Urobilinogen <2.0 (<2.0) mg/dL Ur Leukocyte Esterase Negative (Negative) Disposition Clinical Impression: Back strain Disposition: HOME SELF-CARE Condition: Good Instructions (If sedation given, give patient instructions): Back Pain (ED) Is patient prescribed a controlled substance at d/c from ED?: No Referrals: Issac Pederson DO [Primary Care Provider] - 1-2 days Time of Disposition: 09:56
[2025-04-19] MEDS: SODIUM CHLORIDE 0.9% 1,000 ML IV STA (08:23)
[2025-04-19] MEDS: KETOROLAC 15 MG/ML 1 ML VIAL IVP STA (08:25)
[2025-04-19 08:46] LABS: Basophils # (A) 0.03 10*3/uL (0.00-0.10); Basophils % (A) 0.5 %; Eosinophils # (A) 0.14 10*3/uL (0.04-0.35); Eosinophils % (A) 2.3 %; HCT 43.8 % (37.2-46.3); HGB 14.5 g/dL (12.0-15.0); Lymphocytes # (A) 1.65 10*3/uL (0.90-5.00); Lymphocytes % (A) 26.9 %; MCH 29.5 pg (27.0-32.0); MCHC 33.1 g/dL (32.0-37.0); Mean Platelet Volume 10.2 fL (9.5-12.2); Monocytes # (A) 0.48 10*3/uL (0.20-1.00); Monocytes % (A) 7.8 %; Neutrophils # (A) 3.81 10*3/uL (1.80-7.70); Neutrophils % (A) 62.2 %; Platelet Count 212 10*3/uL (140-440); RBC 4.92 10*6/uL (4.10-5.20); RDW 12.3 % (11.5-14.5); WBC 6.13 10*3/uL (4.50-10.00)
[2025-04-19 08:47] LABS: Appearance,Urine Clear (Clear); Bilirubin,Urine Negative (Negative); Blood,Urine Negative (Negative); Color,Urine Colorless; Glucose,Urine (UA) Negative (Negative); Ketones,Urine Negative (Negative); Leukocyte Esterase,Urine Negative (Negative); Nitrite,Urine Negative (Negative); PH, Urine 6.5 (5.0-8.0); Protein,Urine Negative (Negative); Specific Gravity,Urine 1.007 (1.001-1.035); Urobilinogen,Urine <2.0 mg/dL (<2.0)
[2025-04-19 09:01] LABS: African American GFR (CKD) >90 (>60 ml/min/1.73 sqM); Anion Gap 9 mmol/L; Blood Urea Nitrogen 16 mg/dL (7-17); Calcium 10.2 mg/dL (8.4-10.2); Carbon Dioxide 22 mmol/L (22-30); Chloride 108 mmol/L (98-107); Glucose 111 mg/dL (74-99); Non-African American GFR(CKD) 81 (>60 ml/min/1.73 sqM); Potassium 4.7 mmol/L (3.5-5.1); Sodium 139 mmol/L (137-145)
--- NOTE | 2025-04-19 09:11 | US ---
EXAMINATION TYPE: US kidneys/renal and bladder DATE OF EXAM: 04/19/2025 COMPARISON: CT 04/17/2025 CLINICAL INDICATION: Female, 69 years old with history of flank pain; Flank pain. *Patient has had a couple UTIs. TECHNIQUE: Grayscale imaging of the bilateral kidneys and urinary bladder: FINDINGS: EXAM MEASUREMENTS: Right Kidney: 10.6 x 4.8 x 5.1 cm Left Kidney: 10.1 x 6.1 x 5.9 cm Right Kidney: Hyperechoic focus with posterior shadowing seen lower pole: 0.8 x 0.7 x 0.4 cm. Left Kidney: *Anechoic area seen upper pole: 3.0 x 2.5 x 1.6 cm. Bladder: *Appears anechoic, slightly underdistended. Bilateral Jets seen: Yes IMPRESSION: Nonobstructing calculus right kidney. Simple cyst left kidney. [facility], , 04/19/2025 9:09 AM
[2025-04-19 10:21] VITALS: BP 147/97; PULSE 80; RESP 16; TEMP 97.9
== END 2025-04-19 10:31 | disposition home or self-care (01) ==
LOC: EC 07:35
DX: S39.012A Strain of muscle, fascia and tendon of lower back, initial encounter (principal); Z88.5 Allergy status to narcotic agent; X58.XXXA Exposure to other specified factors, initial encounter
CPT/HCPCS: 99284; 96374; 96361; 36415; 80048; 85025; 81003; 76770; J1885